=== PATIENT | female | born 1965 | race Caucasian/White ===

== ENCOUNTER 2017-03-26 15:18 | Emergency (ER) | payer SELFPAY ==
[~2017-03-26] VITALS: Ht 165.1 cm; Wt 81.6 kg
[2017-03-26 15:37] VITALS: TEMP 37.2; Ht 165.1 cm; Wt 81.6 kg
[2017-03-26] MEDS ORDERED: GABA1CAP5 PO (16:22)
[2017-03-26 16:38] LABS: BASO % 0.3 %; BASO ABS # 0.03 K/uL (0-0.2); EOS % 1.1 %; EOS ABS # 0.12 K/uL (0-0.5); HEMATOCRIT 42.9 % (37-47); HEMOGLOBIN 14.5 g/dL (12.0-16.0); IG# 0.03 K/uL (0.00-0.02); LYMPH % 14.6 %; LYMPH ABS # 1.58 K/uL (1.2-3.4); MEAN CELL VOLUME 87.9 fL (80-100); MEAN CORPUSCULAR HEMOGLOBIN 29.7 pg (25-34); MEAN CORPUSCULAR HGB CONC 33.8 g/dl (32-36); MEAN PLATELET VOLUME 11.5 fL (7.4-10.4); MONO % 6.8 %; MONO ABS # 0.74 K/uL (0.11-0.59); NEUT % 76.9 %; NEUT ABS # 8.32 K/uL (1.4-6.5); PLATELET COUNT 257 K/uL (130-400); RED CELL DISTRIBUTION WIDTH CV 13.9 % (11.5-14.5); RED CELL DISTRIBUTION WIDTH SD 44.6 fL (36.4-46.3); WHITE BLOOD COUNT 10.82 K/uL (4.8-10.8)
[2017-03-26 16:45] LABS: PTT PATIENT 27.6 SECONDS (21.0-31.0)
[2017-03-26 17:00] LABS: CALCIUM 9.5 mg/dl (8.5-10.1); CREATININE 1.1 mg/dl (0.60-1.20)
--- NOTE | 2017-03-26 17:49 | DIAGNOSTIC IMAGING REPORT ---
CERVICAL WITHOUT CONTRAST HISTORY: 51 years-old Female bilateral upper extremity radiculopathy chronic left hand pain for several months without known injury. COMPARISON: None available TECHNIQUE: Multiplanar multisequence MRI of the cervical spine was obtained without contrast. FINDINGS: Study is moderately limited secondary to patient motion throughout all of the sequences. Imaged posterior fossa structures are unremarkable. Signal within the cervical spinal cord is within normal limits. No acute fracture, subluxation, focal bone marrow or soft tissue edema identified. C2-C3: No significant central canal or foraminal narrowing. C3-C4: Mild uncovertebral spurring, left greater than right without significant central canal or foraminal narrowing. C4-C5: Mild intervertebral disc space narrowing with broad-based posterior disc bulge favoring the left lateral recess/left neuroforamen and uncovertebral spurring is noted causing mild central canal, moderate left lateral recess and mild left foraminal narrowing. No significant right foraminal narrowing at this level identified. C5-C6: Mild intervertebral disc space narrowing with small circumferential disc bulge which flattens the ventral thecal sac. No significant central canal or foraminal narrowing identified. Mild uncovertebral spurring. C6-C7: Mild intervertebral disc space narrowing and uncovertebral spurring. No significant central canal or foraminal narrowing. C7-T1: No significant central canal or foraminal narrowing. IMPRESSION: 1. Moderately limited study secondary to patient motion throughout all of the sequences . 2. Mild intervertebral disc space narrowing is seen at C4-C5 through C6-C7. Broad-based posterior disc bulge favoring the left lateral recess/left neuroforamen at C4-C5 causes mild central canal, moderate left lateral recess and mild left foraminal narrowing. 3. No fracture or focal bone marrow edema. The above report was generated using voice recognition software. It may contain grammatical, syntax or spelling errors. Electronically signed by: Abel Oviedo M.D. 03/26/2017 5:47 PM Dictated Date/Time: 03/26/2017 5:40 PM
[2017-03-26] MEDS ORDERED: GADAVIST IV PRN (18:00)
--- NOTE | 2017-03-26 18:07 | EMERGENCY ROOM VISIT NOTE ---
History First contact with patient: 17:05 Chief Complaint: HAND PAIN/INJURY Stated Complaint: LEFT HAND PAIN History of Present Illness The patient is a 51 year old female who presents to the Emergency Room via private vehicle with complaints of "left hand pain". The patient history and physical examination were obtained by Hilda Mendez PA-C. The case was signed out to me at time of shift change. Please refer to her note for the history, review of systems, physical examination as well as patient course up to the point of shift change. At that time the MRIs were pending. Review of Systems The patient history and physical examination were obtained by Hilda Mendez PA-C. The case was signed out to me at time of shift change. Please refer to her note for the history, review of systems, physical examination as well as patient course up to the point of shift change. At that time the MRIs were pending. Social History Smoking Status: Former Smoker Current/Historical Medications Scheduled Gabapentin (Neurontin), 400 MG PO QID Methylprednisolone (Medrol Dosepak), 0 PO DAILY Scheduled PRN Oxycodone Ir (Roxicodone Ir), 1-2 TAB PO Q4H PRN for Pain Physical Exam Vital Signs Date Time Temp Pulse Resp B/P (MAP) Pulse Ox O2 Delivery O2 Flow Rate FiO2 03/26/17 19:44 63 18 155/89 95 Room Air 03/26/17 18:15 65 16 129/110 97 Room Air 03/26/17 15:37 37.2 63 20 201/155 94 Room Air Physical Exam The patient history and physical examination were obtained by Hilda Mendez PA-C. The case was signed out to me at time of shift change. Please refer to her note for the history, review of systems, physical examination as well as patient course up to the point of shift change. At that time the MRIs were pending. Upon my exam, the patient was able to extend at the wrist and the fingers as well as clenched fist. Medical Decision & Procedures ER Provider Diagnostic Interpretation: BRAIN COMBO FOR MS HISTORY: 51 years-old Female left upper extremity neurologic deficit/ muscle contractures left hand pain for several months without known injury. COMPARISON: CT cervical spine of same day TECHNIQUE: Multiplanar multisequence MRI of the cervical spine was obtained both with and without the use of 8 mL Gadavist utilizing Institutional multiple sclerosis protocol FINDINGS: Large field view java tech lead localizer images demonstrate no gross abnormality. There is no restricted diffusion to suggest acute infarction. The midline structures including the corpus callosum, brainstem, optic chiasm, pituitary and pineal glands are unremarkable as seen on the sagittal T1 series. Several of the sequences are moderately motion degraded. No cerebellar tonsillar herniation. There is no acute intracranial hemorrhage, midline shift, abnormal extra-axial collections, hydrocephalus or intracranial mass. Punctate focus of increased T2/FLAIR signal noted within the subcortical white matter of the left frontal lobe as seen on image 7 series 8, likely of no clinical significance. No significant periventricular hyperintensities identified to suggest multiple sclerosis. There is no abnormal intra-axial or extra-axial enhancement. Major flow voids at the level of the skull base appear to be patent. Orbits are symmetric and within normal limits. Paranasal sinuses are generally clear. The mastoid air cells are clear. Soft tissues and calvarium are unremarkable. IMPRESSION: 1. Moderately motion degraded exam without acute intracranial abnormality identified. 2. No abnormal enhancement or definite evidence of demyelinating disease. The above report was generated using voice recognition software. It may contain grammatical, syntax or spelling errors. Electronically signed by: Abel Oviedo M.D. 03/26/2017 6:15 PM Dictated Date/Time: 03/26/2017 6:04 PM CERVICAL WITHOUT CONTRAST HISTORY: 51 years-old Female bilateral upper extremity radiculopathy chronic left hand pain for several months without known injury. COMPARISON: None available TECHNIQUE: Multiplanar multisequence MRI of the cervical spine was obtained without contrast. FINDINGS: Study is moderately limited secondary to patient motion throughout all of the sequences. Imaged posterior fossa structures are unremarkable. Signal within the cervical spinal cord is within normal limits. No acute fracture, subluxation, focal bone marrow or soft tissue edema identified. C2-C3: No significant central canal or foraminal narrowing. C3-C4: Mild uncovertebral spurring, left greater than right without significant central canal or foraminal narrowing. C4-C5: Mild intervertebral disc space narrowing with broad-based posterior disc bulge favoring the left lateral recess/left neuroforamen and uncovertebral spurring is noted causing mild central canal, moderate left lateral recess and mild left foraminal narrowing. No significant right foraminal narrowing at this level identified. C5-C6: Mild intervertebral disc space narrowing with small circumferential disc bulge which flattens the ventral thecal sac. No significant central canal or foraminal narrowing identified. Mild uncovertebral spurring. C6-C7: Mild intervertebral disc space narrowing and uncovertebral spurring. No significant central canal or foraminal narrowing. C7-T1: No significant central canal or foraminal narrowing. IMPRESSION: 1. Moderately limited study secondary to patient motion throughout all of the sequences . 2. Mild intervertebral disc space narrowing is seen at C4-C5 through C6-C7. Broad-based posterior disc bulge favoring the left lateral recess/left neuroforamen at C4-C5 causes mild central canal, moderate left lateral recess and mild left foraminal narrowing. 3. No fracture or focal bone marrow edema. The above report was generated using voice recognition software. It may contain grammatical, syntax or spelling errors. Electronically signed by: Abel Oviedo M.D. 03/26/2017 5:47 PM Dictated Date/Time: 03/26/2017 5:40 PM L ELBOW MIN 3 VIEWS ROUTINE HISTORY: 51 years-old Female L forearm, elbow and hand pain. remote trauma acute left-sided elbow pain with history of remote trauma COMPARISON: None available TECHNIQUE: 3 views of the left elbow FINDINGS: Bones appear mildly demineralized. Moderate joint space narrowing of the radiocapitellar and olecranon trochlear articulations are noted with areas of subchondral sclerosis and subcortical lucency suggesting subcortical cysts with subtle erosions thought to be less likely. There is also mild soft tissue swelling about the elbow without large joint effusion or opaque foreign body. No acute fracture or subluxation. IMPRESSION: 1. Mild soft tissue swelling about the elbow without acute fracture or subluxation. 2. Moderate joint space narrowing about the elbow with subchondral sclerosis and probable subcortical cystic change, likely degenerative in nature with inflammatory arthropathy thought to be less likely. The above report was generated using voice recognition software. It may contain grammatical, syntax or spelling errors. Electronically signed by: Abel Oviedo M.D. 03/26/2017 6:46 PM Dictated Date/Time: 03/26/2017 6:43 PM Laboratory Results 03/26/17 16:25 Red Blood Count 4.88, Mean Corpuscular Volume 87.9, Mean Corpuscular Hemoglobin 29.7, Mean Corpuscular Hemoglobin Concent 33.8, Mean Platelet Volume 11.5, Neutrophils (%) (Auto) 76.9, Lymphocytes (%) (Auto) 14.6, Monocytes (%) (Auto) 6.8, Eosinophils (%) (Auto) 1.1, Basophils (%) (Auto) 0.3, Neutrophils # (Auto) 8.32, Lymphocytes # (Auto) 1.58, Monocytes # (Auto) 0.74, Eosinophils # (Auto) 0.12, Basophils # (Auto) 0.03 03/26/17 16:25 Test 03/26/17 16:25 White Blood Count 10.82 K/uL (4.8-10.8) Red Blood Count 4.88 M/uL (4.2-5.4) Hemoglobin 14.5 g/dL (12.0-16.0) Hematocrit 42.9 % (37-47) Mean Corpuscular Volume 87.9 fL (80-100) Mean Corpuscular Hemoglobin 29.7 pg (25-34) Mean Corpuscular Hemoglobin Concent 33.8 g/dl (32-36) Platelet Count 257 K/uL (130-400) Mean Platelet Volume 11.5 fL (7.4-10.4) Neutrophils (%) (Auto) 76.9 % Lymphocytes (%) (Auto) 14.6 % Monocytes (%) (Auto) 6.8 % Eosinophils (%) (Auto) 1.1 % Basophils (%) (Auto) 0.3 % Neutrophils # (Auto) 8.32 K/uL (1.4-6.5) Lymphocytes # (Auto) 1.58 K/uL (1.2-3.4) Monocytes # (Auto) 0.74 K/uL (0.11-0.59) Eosinophils # (Auto) 0.12 K/uL (0-0.5) Basophils # (Auto) 0.03 K/uL (0-0.2) RDW Standard Deviation 44.6 fL (36.4-46.3) RDW Coefficient of Variation 13.9 % (11.5-14.5) Immature Granulocyte % (Auto) 0.3 % Immature Granulocyte # (Auto) 0.03 K/uL (0.00-0.02) Prothrombin Time 10.1 SECONDS (9.0-12.0) Prothromb Time International Ratio 1.0 (0.9-1.1) Activated Partial Thromboplast Time 27.6 SECONDS (21.0-31.0) Partial Thromboplastin Ratio 1.1 Anion Gap 4.0 mmol/L (3-11) Est Creatinine Clear Calc Drug Dose 62.4 ml/min Estimated GFR () 66.4 Estimated GFR (Non- 57.3 BUN/Creatinine Ratio 18.3 (10-20) Calcium Level 9.5 mg/dl (8.5-10.1) Magnesium Level 2.3 mg/dl (1.8-2.4) Medications Administered Medications (Trade) Dose Ordered Sig/Surya Route Start Time Stop Time Status Last Admin Dose Admin Oxycodone HCl (Roxicodone Immediate Rel 5MG Home Pack) 1 [facility] UD STAT PO 03/26/17 19:46 03/26/17 19:47 DC 03/26/17 19:46 [facility] Medical Decision Patient was seen and evaluated as above. She presents to us today with left hand pain. She was initially seen by Hilda Mendez PA-C and was signed out to me at shift change. MRIs were pending. The results revealed no brain abnormality however the study is degraded by motion. The neck reveals some bulging disks. I suspect this could cause some of her pain. X-ray was also obtained and ordered by myself. Some degenerative change. Otherwise negative. There is no fracture. The patient does not have on my reevaluation any emergent neurovascular deficit. She appears stable from patient management with a meat specialist. There is no signal abnormality on the MRI. She'll be given steroids and pain medication. No red flags in the [place] drug monitoring system. She was educated upon management, educated upon worrisome symptoms in which to return, had questions prior to discharge, and was discharged home in good condition. In evaluation treatment this patient the following differential diagnoses were entertained: Elbow fracture, dislocation, olecranon bursitis, ulnar neuritis, cervical radiculopathy, multiple sclerosis, among others. Impression Primary Impression: Arm pain, left Departure Information Dispostion Home / Self-Care Condition GOOD Prescriptions Methylprednisolone (MEDROL DOSEPAK) 4 Mg Yahir 0 PO DAILY, #1 PKT Prov: Benito Samson PA-C 1/2/18 Oxycodone Ir (Roxicodone Ir) 5 Mg Tab 1-2 TAB PO Q4H Y for Pain, #20 TAB For Initial Treatment Prov: Benito Samson PA-C 03/26/17 Referrals No Doctor, Assigned (PCP) Edgardo Herman D.O. Sefter, John C., DO Patient Instructions My [facility] Additional Instructions You were seen in the emergency Department for left arm pain and weakness. Oxycodone 1 tablet every 6 hours for pain. Do not drive or drink alcohol with this medication. Medrol Dosepak as prescribed. CT scan shows a left disc bulge in your neck. X-ray of your left elbow shows degenerative change. Results are below to discuss with the orthopedic/meat specialist. I recommend following up with Dr. Sousa. Please call him tomorrow. Dr. Herman is the other meat specialist in the area. Please return with any new/concerning symptoms. As we discussed if you develop weakness in this arm worse than what you have, or inability to move please return. BRAIN COMBO FOR MS HISTORY: 51 years-old Female left upper extremity neurologic deficit/ muscle contractures left hand pain for several months without known injury. COMPARISON: CT cervical spine of same day TECHNIQUE: Multiplanar multisequence MRI of the cervical spine was obtained both with and without the use of 8 mL Gadavist utilizing Institutional multiple sclerosis protocol FINDINGS: Large field view java tech lead localizer images demonstrate no gross abnormality. There is no restricted diffusion to suggest acute infarction. The midline structures including the corpus callosum, brainstem, optic chiasm, pituitary and pineal glands are unremarkable as seen on the sagittal T1 series. Several of the sequences are moderately motion degraded. No cerebellar tonsillar herniation. There is no acute intracranial hemorrhage, midline shift, abnormal extra-axial collections, hydrocephalus or intracranial mass. Punctate focus of increased T2/FLAIR signal noted within the subcortical white matter of the left frontal lobe as seen on image 7 series 8, likely of no clinical significance. No significant periventricular hyperintensities identified to suggest multiple sclerosis. There is no abnormal intra-axial or extra-axial enhancement. Major flow voids at the level of the skull base appear to be patent. Orbits are symmetric and within normal limits. Paranasal sinuses are generally clear. The mastoid air cells are clear. Soft tissues and calvarium are unremarkable. IMPRESSION: 1. Moderately motion degraded exam without acute intracranial abnormality identified. 2. No abnormal enhancement or definite evidence of demyelinating disease. The above report was generated using voice recognition software. It may contain grammatical, syntax or spelling errors. Electronically signed by: Abel Oviedo M.D. 03/26/2017 6:15 PM Dictated Date/Time: 03/26/2017 6:04 PM CERVICAL WITHOUT CONTRAST HISTORY: 51 years-old Female bilateral upper extremity radiculopathy chronic left hand pain for several months without known injury. COMPARISON: None available TECHNIQUE: Multiplanar multisequence MRI of the cervical spine was obtained without contrast. FINDINGS: Study is moderately limited secondary to patient motion throughout all of the sequences. Imaged posterior fossa structures are unremarkable. Signal within the cervical spinal cord is within normal limits. No acute fracture, subluxation, focal bone marrow or soft tissue edema identified. C2-C3: No significant central canal or foraminal narrowing. C3-C4: Mild uncovertebral spurring, left greater than right without significant central canal or foraminal narrowing. C4-C5: Mild intervertebral disc space narrowing with broad-based posterior disc bulge favoring the left lateral recess/left neuroforamen and uncovertebral spurring is noted causing mild central canal, moderate left lateral recess and mild left foraminal narrowing. No significant right foraminal narrowing at this level identified. C5-C6: Mild intervertebral disc space narrowing with small circumferential disc bulge which flattens the ventral thecal sac. No significant central canal or foraminal narrowing identified. Mild uncovertebral spurring. C6-C7: Mild intervertebral disc space narrowing and uncovertebral spurring. No significant central canal or foraminal narrowing. C7-T1: No significant central canal or foraminal narrowing. IMPRESSION: 1. Moderately limited study secondary to patient motion throughout all of the sequences . 2. Mild intervertebral disc space narrowing is seen at C4-C5 through C6-C7. Broad-based posterior disc bulge favoring the left lateral recess/left neuroforamen at C4-C5 causes mild central canal, moderate left lateral recess and mild left foraminal narrowing. 3. No fracture or focal bone marrow edema. The above report was generated using voice recognition software. It may contain grammatical, syntax or spelling errors. Electronically signed by: Abel Oviedo M.D. 03/26/2017 5:47 PM Dictated Date/Time: 03/26/2017 5:40 PM L ELBOW MIN 3 VIEWS ROUTINE HISTORY: 51 years-old Female L forearm, elbow and hand pain. remote trauma acute left-sided elbow pain with history of remote trauma COMPARISON: None available TECHNIQUE: 3 views of the left elbow FINDINGS: Bones appear mildly demineralized. Moderate joint space narrowing of the radiocapitellar and olecranon trochlear articulations are noted with areas of subchondral sclerosis and subcortical lucency suggesting subcortical cysts with subtle erosions thought to be less likely. There is also mild soft tissue swelling about the elbow without large joint effusion or opaque foreign body. No acute fracture or subluxation.
--- NOTE | 2017-03-26 18:16 | DIAGNOSTIC IMAGING REPORT ---
BRAIN COMBO FOR MS HISTORY: 51 years-old Female left upper extremity neurologic deficit/ muscle contractures left hand pain for several months without known injury. COMPARISON: CT cervical spine of same day TECHNIQUE: Multiplanar multisequence MRI of the cervical spine was obtained both with and without the use of 8 mL Gadavist utilizing Institutional multiple sclerosis protocol FINDINGS: Large field view edge stainer machine localizer images demonstrate no gross abnormality. There is no restricted diffusion to suggest acute infarction. The midline structures including the corpus callosum, brainstem, optic chiasm, pituitary and pineal glands are unremarkable as seen on the sagittal T1 series. Several of the sequences are moderately motion degraded. No cerebellar tonsillar herniation. There is no acute intracranial hemorrhage, midline shift, abnormal extra-axial collections, hydrocephalus or intracranial mass. Punctate focus of increased T2/FLAIR signal noted within the subcortical white matter of the left frontal lobe as seen on image 7 series 8, likely of no clinical significance. No significant periventricular hyperintensities identified to suggest multiple sclerosis. There is no abnormal intra-axial or extra-axial enhancement. Major flow voids at the level of the skull base appear to be patent. Orbits are symmetric and within normal limits. Paranasal sinuses are generally clear. The mastoid air cells are clear. Soft tissues and calvarium are unremarkable. IMPRESSION: 1. Moderately motion degraded exam without acute intracranial abnormality identified. 2. No abnormal enhancement or definite evidence of demyelinating disease. The above report was generated using voice recognition software. It may contain grammatical, syntax or spelling errors. Electronically signed by: Abel Oviedo M.D. 03/26/2017 6:15 PM Dictated Date/Time: 03/26/2017 6:04 PM
--- NOTE | 2017-03-26 18:47 | DIAGNOSTIC IMAGING REPORT ---
L ELBOW MIN 3 VIEWS ROUTINE HISTORY: 51 years-old Female L forearm, elbow and hand pain. remote trauma acute left-sided elbow pain with history of remote trauma COMPARISON: None available TECHNIQUE: 3 views of the left elbow FINDINGS: Bones appear mildly demineralized. Moderate joint space narrowing of the radiocapitellar and olecranon trochlear articulations are noted with areas of subchondral sclerosis and subcortical lucency suggesting subcortical cysts with subtle erosions thought to be less likely. There is also mild soft tissue swelling about the elbow without large joint effusion or opaque foreign body. No acute fracture or subluxation. IMPRESSION: 1. Mild soft tissue swelling about the elbow without acute fracture or subluxation. 2. Moderate joint space narrowing about the elbow with subchondral sclerosis and probable subcortical cystic change, likely degenerative in nature with inflammatory arthropathy thought to be less likely. The above report was generated using voice recognition software. It may contain grammatical, syntax or spelling errors. Electronically signed by: Abel Oviedo M.D. 03/26/2017 6:46 PM Dictated Date/Time: 03/26/2017 6:43 PM
[2017-03-26 19:44] VITALS: BP 155/89; PULSE 63; O2SAT 95
[2017-03-26] MEDS ORDERED: OXYCODONE IR HOME PACK PO STA (19:46)
[2017-03-26] MEDS ORDERED: OXYC1TAB3 PO (19:47)
[2017-03-26] MEDS ORDERED: METH4PAK PO (19:47)
== END 2017-03-26 19:52 | disposition home or self-care (01) ==
LOC: C.EDB 15:20 → C.EDD 19:52
DX: M79.602 Pain in left arm (principal); Z87.891 Personal history of nicotine dependence; Z79.899 Other long term (current) drug therapy

== ENCOUNTER 2017-07-05 11:41 | Emergency (ER) | payer OTHER ==
[~2017-07-05] VITALS: Ht 165.1 cm; Wt 80.9 kg
[~2017-07-05 11:41] MED LIST: GABA-1220 PO; OXYC1TAB3 PO
[2017-07-05 11:44] VITALS: TEMP 36.6; Ht 165.1 cm; Wt 80.9 kg
[2017-07-05] MEDS ORDERED: DIAZEPAM 5MG TAB PO STA (13:21)
--- NOTE | 2017-07-05 14:44 | DIAGNOSTIC IMAGING REPORT ---
Brain MRI WITH AND WITHOUT CONTRAST HISTORY: LEFT ARM INVOLUNTARY MOVEMENTS, SPASM, CONTRACTURES TECHNIQUE: Multiplanar multisequence MRI of the brain was performed both before and after the intravenous administration of contrast. COMPARISON STUDY: Brain MRI 03/26/2017. FINDINGS: There are no areas of restricted diffusion to suggest acute infarction. The midline structures are intact. The paranasal sinuses are clear. The mastoid air cells are clear. The ventricles and sulci are within normal limits for age. There is no mass, hematoma, midline shift. The major vascular flow-voids at the skull base are well maintained. Postcontrast sequences show no areas of abnormal enhancement. Stable punctate focus of increased T2 signal within the periventricular white matter of the left frontal lobe. This favors minimal microvascular ischemic change. IMPRESSION: No significant change compared to the prior study. No acute intracranial abnormality. Electronically signed by: Kenji Goodman M.D. 07/05/2017 2:43 PM Dictated Date/Time: 07/05/2017 2:37 PM
[2017-07-05] MEDS ORDERED: GADAVIST IV PRN (14:45)
[2017-07-05] MEDS ORDERED: CYCL10TA6 PO (16:09)
--- NOTE | 2017-07-05 16:10 | EMERGENCY ROOM VISIT NOTE ---
History First contact with patient: 11:47 Chief Complaint: FINGER PAIN Stated Complaint: FINGER PAIN/DEFORMITY History of Present Illness Patient is an ambidextrous 52-year-old female who presents to the emergency department for evaluation of chronic left arm pain, cramping and spasms with now associated contractures of her left thumb and index finger in the last week. The patient was seen and evaluated here in March of this year for similar complaints. At that time she had had a roughly 8-9 month history of pain in the arm, cramping, spasms and involuntary movement. She had a thorough workup performed at that time which included brain and cervical spine MRIs with and without contrast, which were essentially unremarkable, she had some mild disc disease in the cervical spine, but no other acute pathology. She was referred to orthopedic spine surgery after being placed on a course of steroids and narcotics. The patient was unable to follow-up with orthopedic spine due to her lack of insurance. She states that she was seen by the "[facility] in [place]" in April, and certified for disability due to the symptoms in her left arm, but she denies any other additional testing was performed. She reports that she is in the process of getting insurance, she does not have any insurance cards presently, and therefore has not had any further follow-up for her arm symptoms. She has chronic pain in the arm, it radiates from her hand up to her shoulder into the side of her neck. That again has been chronic in nature but has been getting worse. It has been unalleviated by over-the- counter medications including aspirin, Tylenol, ibuprofen and Tylenol PM. She also has a wrist brace that she had been using in the past which is also been ineffective. She is concerned because in the last week her thumb and index finger on the left are fixed in flexion and she is unable to straighten them. She states that she has chronic numbness in her first, second and third fingers. The patient reports that she is on gabapentin for PTSD, and this does help with her hand pain slightly. She denies any symptoms in the other extremities. She denies any cervical spine pain. No headaches, lightheadedness , dizziness, nausea or vomiting. Review of Systems Review of systems as per HPI. All other systems reviewed were negative. 10 systems reviewed. Past Medical/Surgical History Medical Problems: (1) Arm pain, left (2) Post traumatic stress disorder (PTSD) (3) Sleep Disturbances Nec Surgical Problems: (1) Amputation of thumb, right Electronic medical records are reviewed and summarized as above/below. See Problem List. Social History Smoking Status: Never Smoker Housing Status: lives with family Occupation Status: disabled Current/Historical Medications Scheduled Gabapentin (Neurontin), 400 MG PO QID Scheduled PRN Cyclobenzaprine Hcl (Flexeril), 10 MG PO TID PRN for Muscle Spasms Oxycodone Ir (Roxicodone Ir), 1-2 TAB PO Q4H PRN for Pain Physical Exam Vital Signs Date Time Temp Pulse Resp B/P (MAP) Pulse Ox O2 Delivery O2 Flow Rate FiO2 07/05/17 16:15 84 18 186/107 96 07/05/17 15:55 68 16 175/86 97 Room Air 07/05/17 13:28 62 16 198/92 96 Room Air 07/05/17 11:44 36.6 75 20 190/110 95 Room Air Physical Exam GENERAL: Patient is an obese 52-year-old white female who is awake and alert and sitting upright on the gurney in no acute distress. She has involuntary, spastic almost chorea-like movements of the left upper extremity. NECK: Supple, no lymphadenopathy noted. No carotid bruits noted. LUNGS: Clear auscultation. CARDIAC: Regular rate and rhythmr. CERVICAL SPINE: No gross bony deformity noted. The patient is nontender to palpation over the spinous processes in the paravertebral region. She is full range of motion of the cervical spine. NEURO:Cranial nerves two through 12 intact. Patient was unable to do fine motor testing due to hyperextension of all her fingers of the right hand as well as contractures of the left hand. Negative pronator drift. LEFT UPPER EXTREMITY. No gross bony deformity noted. The patient has tenderness to palpation at the shoulder and the elbow, slight swelling of the elbow is appreciated although no obvious joint effusion. Passive range of motion of the shoulder and elbow are limited. She cannot be flexed or abducted the shoulder greater than 90, elbow lacks full extension, can be flex just past 90. Unable to assess pronation and supination due to spasm. She postures more with the wrist in flexion, she also has flexion of the left index and left thumb, when asked to extend her fingers, she is able to extend the fingers and wrist, at which point then the index finger begins to flex again, she is unable to extend the left thumb. [employer] Cutter strength is equal bilaterally. I am unable to elicit triceps or brachioradialis deep tendon reflexes on the left , biceps tendon reflex is present, slightly hyperreflexive. Gross sensation to light touch is intact over the entire left upper extremity. All throughout the exam, patient has involuntary movements. RIGHt UPPER EXTREMITY: Right thumb is surgically absent. The patient has hyperextension intermittently of all fingers, but otherwise full range of motion and normal sensation. Upper extremity deep tendon reflexes on the right are normal. Medical Decision & Procedures ER Provider Diagnostic Interpretation: Brain MRI WITH AND WITHOUT CONTRAST HISTORY: LEFT ARM INVOLUNTARY MOVEMENTS, SPASM, CONTRACTURES TECHNIQUE: Multiplanar multisequence MRI of the brain was performed both before and after the intravenous administration of contrast. COMPARISON STUDY: Brain MRI 03/26/2017. FINDINGS: There are no areas of restricted diffusion to suggest acute infarction. The midline structures are intact. The paranasal sinuses are clear. The mastoid air cells are clear. The ventricles and sulci are within normal limits for age. There is no mass, hematoma, midline shift. The major vascular flow-voids at the skull base are well maintained. Postcontrast sequences show no areas of abnormal enhancement. Stable punctate focus of increased T2 signal within the periventricular white matter of the left frontal lobe. This favors minimal microvascular ischemic change. IMPRESSION: No significant change compared to the prior study. No acute intracranial abnormality. Medications Administered Medications (Trade) Dose Ordered Sig/Surya Route Start Time Stop Time Status Last Admin Dose Admin Diazepam (Valium Tab) 10 mg NOW STAT PO 07/05/17 13:21 07/05/17 13:22 DC 07/05/17 13:26 10 MG ED Course The patient was seen and assessed as above. Her old records are reviewed, specifically her ED visit from a couple of months ago. Her history and presentation were reviewed with attending physician, who advised to review the patient with neurology. I was able to speak with Dr. Pepper, who suggested that if her symptoms were worsening that a repeat MRI was reasonable, repeat brain MRI with and without contrast was obtained, and was essentially unremarkable. He suggested her symptoms are concerning for a focal dystonia, could be related to stroke or trauma, other type of demyelinating process, cervical spine pathology, among others. The fingers can be passively fully extended, there is nothing that appears to be more localized like an orthopedic process such as a trigger finger or Dupuytren's contracture. MRI findings were reviewed with the patient. The importance of follow-up with neurology for further workup of her symptoms was impressed upon her at length. I offered to make her an appointment with a neurologist, but she does not want to pursue any appointments until she has her insurance card in the hand. She was advised to speak with the insurance company that she has been dealing with to expedite this. She expressed understanding and was in agreement. The patient was given 10 mg of Valium orally prior to MRI and did find that the benzodiazepine helped with her involuntary movements. I am reluctant to prescribe narcotics for this condition due to the unclear etiology, but I did provide her with a prescription for muscle relaxers to use as needed for pain and spasm. She was given contact information for all local neurology groups to arrange follow-up. She was discharged home in good condition. Medical Decision See emergency department course. [facility] Search Results: patient reviewed within database, no issues identified Medication Reconcilliation Current Medication List: was personally reviewed by me Blood Pressure Screening Patient's blood pressure: Normal blood pressure Blood pressure disposition: Did not require urgent referral Impression Primary Impression: Focal dystonia Departure Information Prescriptions Cyclobenzaprine Hcl (FLEXERIL) 10 Mg Tab 10 MG PO TID Y for Muscle Spasms, #30 TAB Prov: Rhiannon Tijerina PA 07/05/17 Referrals No Doctor, Assigned (PCP) Ruben Pepper M.D. [facility] Neu[facility] Dora Delgadillo M.D. [facility] Neurology Patient Instructions [facility] Additional Instructions Ibuprofen(Motrin, Advil) may be used for fever or pain. Use 600mg every six hours as needed. Take with food. Avoid using more than 2400mg in a 24 hour period. Do not use 2400mg per day for more than three consecutive days without physician direction. Prolonged inappropriate use can lead to stomach upset or ulcers. (AND/OR) Acetaminophen(Tylenol) may be used for fever or pain. Use 1000mg every six hours as needed. Avoid using more than 3000mg in a 24 hour period. Cyclobenzaprine (Flexeril) 10 mg: Take 1 pills 3 times daily as needed for muscle spasms.. Avoid alcohol, operating machinery or dangerous equipment, working on ladders or roofs, DRIVING, or situations where being under the influence may be dangerous. Continue current medications. Follow up with neurology-you will need to call to make an appointment when you get your insurance information.
[2017-07-05 16:15] VITALS: BP 186/107; PULSE 84; O2SAT 96
== END 2017-07-05 16:25 | disposition home or self-care (01) ==
LOC: C.EDB 11:42 → C.EDD 16:25
DX: G24.9 Dystonia, unspecified (principal); G89.29 Other chronic pain; M79.602 Pain in left arm; F43.10 Post-traumatic stress disorder, unspecified; Z89.011 Acquired absence of right thumb; Z79.899 Other long term (current) drug therapy

== ENCOUNTER 2020-07-06 19:28 | Inpatient (IN) ==
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
[2020-07-06 22:52] LABS: Basophils # (auto) 0.01 K/uL (0-0.2); Basophils % (auto) 0.1 %; Eosinophils # (auto) 0.07 K/uL (0-0.5); Eosinophils % (auto) 0.9 %; Hematocrit (blood only) 43.4 % (37-47); Immature Granulocytes # (auto) 0.03 K/uL (0.00-0.02); Immature Granulocytes % (auto) 0.4 %; Lymphocytes # (auto) 1.85 K/uL (1.2-3.4); Lymphocytes % (auto) 23.5 %; Mean Corpuscular Hemoglobin 28.5 pg (25-34); Mean Corpuscular Hgb Conc 32.3 g/dL (32-36); Mean Corpuscular Volume 88.4 fL (80-100); Mean Platelet Volume 9.9 fL (7.4-10.4); Monocytes # (auto) 0.74 K/uL (0.11-0.59); Monocytes % (auto) 9.4 %; Neutrophils # (auto) 5.18 K/uL (1.4-6.5); Neutrophils % (auto) 65.7 %; Platelet Count 294 K/uL (130-400); RDW Coefficient of Variation 15.5 % (11.5-14.5); RDW Standard Deviation 49.3 fL (36.4-46.3); Red Blood Count 4.91 M/uL (4.2-5.4); White Blood Count 7.88 K/uL (4.8-10.8)
[2020-07-06 23:09] LABS: BUN Creatinine Ratio 13.5 (10-20); Calcium 9.5 mg/dl (8.5-10.1); Creatinine Clr Calc Pharmacy 57.6 ml/min; Est GFR (African American) 77.1; Est GFR (Non-African American) 66.5; Potassium 3.9 mmol/L (3.5-5.1)
[2020-07-06 23:20] LABS: Acetaminophen < 2 ug/ml (10-30); Bilirubin,Total 0.5 mg/dl (0.2-1); Globulin 4.2 gm/dl (2.5-4.0); Salicylate < 1.7 mg/dl (2.8-20); Thyroid Stimulating Hormone 1.55 uIu/ml (0.300-4.500); Total Protein 8.2 gm/dl (6.4-8.2)
[2020-07-06 23:33] LABS: Appearance Urine Turbid (Clear); Bacteria Urine Automated 2+ (Negative); Bilirubin Urine Negative (Negative); Blood Urine Negative (Negative); Color Urine Yellow; Epithelial Cell Urine Auto >30 /lpf (0-5); Glucose Urine UA Negative (Negative); Ketones Urine Negative (Negative); Leukocyte Esterase Urine 2+ (Negative); Nitrite Urine Negative (Negative); Protein Urine 1+ (Negative); Specific Gravity Urine 1.018 (1.000-1.030); Urobilinogen Urine Negative (Negative); WBC Urine Automated >30 /hpf (0-5)
[2020-07-06 23:53] LABS: Mucus Urine Present (None Prsent)
[2020-07-06 23:54] LABS: RBC Urine Automated 0-4 /hpf (0-4)
[2020-07-07] MEDS ORDERED: cefTRIAXone SODIUM 1,000 MG/50 ML BAG IV STA (00:04)
[2020-07-07] MEDS ORDERED: SODIUM CHLORIDE 0.9% 1000ML 1,000 ML IV ONE (00:04)
[2020-07-07 00:19] LABS: Amphetamines+Metham, Urine Neg (Neg); Barbiturates, Urine Neg (Neg); Benzodiazepine, Urine Neg (Neg); Cocaine, Urine Neg (Neg); MDMA (Ecstacy), Urine Pos (Neg); Methadone, Urine Neg (Neg); Opiate, Urine Neg (Neg); Phencyclidine, Urine Neg (Neg)
--- NOTE | 2020-07-07 05:47 | Emergency Department Note ---
ED Visit Note This case was signed out to me at change of shift awaiting evaluation by the ED psychiatric leather case finisher. The patient was found to have delusional thinking. She has no psychiatric resources and no support system. The patient appeared to be suffering from acute psychosis. She is unable to care for herself. The patient does not have good insight. The 302 was signed. The patient was evaluated by 3 S and accepted to their unit. . : UTI (urinary tract infection) Qualifiers: Urinary tract infection type: acute cystitis Hematuria presence: with hematuria Qualified Code(s): N30.01 - Acute cystitis with hematuria
[2020-07-07] MEDS ORDERED: BISMUTH SUBSALICYLATE LIQD 236 ML PO PRN (06:11)
[2020-07-07] MEDS ORDERED: hydrOXYzine HCl 25 MG TAB PO PRN ×2 (06:11)
[2020-07-07] MEDS ORDERED: SODIUM CHLORIDE 0.65% NA SOLN 45 ML (OCEAN) PRN (06:11)
[2020-07-07] MEDS ORDERED: MAGNESIUM HYDROXIDE SUSP 30 ML UDC PO PRN (06:11)
[2020-07-07] MEDS ORDERED: ALUMINUM/MAGNESIUM SUSP 30 ML UDC PO PRN (06:11)
--- NOTE | 2020-07-07 07:15 | CT Scan Report ---
HEAD CT NONCONTRAST CT DOSE: 537.48 mGy.cm HISTORY: Altered mental status TECHNIQUE: Multiaxial CT images of the head were performed without the use of intravenous contrast. A utomated exposure control was utilized for this study. A dose lowering technique was utilized adheri ng to the principles of ALARA. Comparison: None. Findings: The paranasal sinuses and mastoid air cells are clear. The calvarium and skull base are int act. The ventricles and sulci are within normal limits. There is no mass, hematoma, midline shift, or acute infarct. Impression: No acute intracranial abnormality. ACT 112: Negative or not required by law. Electronically signed by: Kenji Goodman M.D. 07/07/2020 7:14 AM
[2020-07-07] MEDS: FOLIC ACID 1 MG TAB PO SCH (08:14)
[2020-07-07] MEDS: GABAPENTIN 300 MG CAP PO SCH ×3 (08:14→20:18)
[2020-07-07] MEDS: BACLOFEN 20 MG TAB PO SCH ×3 (08:14→20:18)
[2020-07-07] MEDS: DICLOFENAC SODIUM 75 MG TABCR PO SCH (08:15)
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
[2020-07-07] MEDS ORDERED: risperiDONE 0.5 MG TABLET PO PRN (10:13)
[2020-07-07] MEDS: traZODone HCL 100 MG TAB PO SCH (20:18)
[2020-07-07] MEDS: risperiDONE 0.5 MG TABLET PO SCH (20:19)
--- NOTE | 2020-07-08 06:14 | Electrocardiogram Report ---
Test Reason : Blood Pressure : / mmHG Vent. Rate : 050 BPM Atrial Rate : 050 BPM P-R Int : 130 ms QRS Dur : 074 ms QT Int : 466 ms P-R-T Axes : 047 -07 043 degrees QTc Int : 424 ms Sinus bradycardia Nonspecific T wave abnormality Abnormal ECG When compared with ECG of 05-OCT-2019 04:04, No significant change Confirmed by Christopher Crouch ([id number]) on 07/08/2020 6:14:49 AM Referred By: REFERRED SELF Confirmed By:Christopher Crouch
[2020-07-08 07:50] LABS: Glucose Fasting 91 mg/dl (70-99)
[2020-07-08 07:57] LABS: Chol HDL Ratio 5; Cholesterol 179 mg/dl (0-200); HDL Cholesterol 39 mg/dl; LDL Cholesterol Calculated 119 mg/dl; Triglycerides 103 mg/dl (0-150); VLDL Cholesterol 21 mg/dl
[2020-07-08] MEDS: FOLIC ACID 1 MG TAB PO SCH (10:56)
[2020-07-08] MEDS: DICLOFENAC SODIUM 75 MG TABCR PO SCH (10:56)
[2020-07-08] MEDS: GABAPENTIN 300 MG CAP PO SCH ×3 (10:57→20:32)
[2020-07-08] MEDS: BACLOFEN 20 MG TAB PO SCH ×3 (10:57→20:32)
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
[2020-07-08] MEDS: traZODone HCL 100 MG TAB PO SCH (20:32)
[2020-07-08] MEDS: ACETAMINOPHEN 325 MG TAB PO PRN (20:33)
[2020-07-08] MEDS: risperiDONE 0.5 MG TABLET PO SCH (20:34)
[2020-07-09] MEDS: FOLIC ACID 1 MG TAB PO SCH (09:20)
[2020-07-09] MEDS: DICLOFENAC SODIUM 75 MG TABCR PO SCH (09:20)
[2020-07-09] MEDS: BACLOFEN 20 MG TAB PO SCH ×3 (09:20→20:47)
[2020-07-09] MEDS: GABAPENTIN 300 MG CAP PO SCH ×3 (09:21→20:47)
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
[2020-07-09] MEDS: ACETAMINOPHEN 325 MG TAB PO PRN (20:45)
[2020-07-09] MEDS: risperiDONE 0.5 MG TABLET PO SCH (20:47)
[2020-07-09] MEDS: traZODone HCL 100 MG TAB PO SCH (20:47)
[2020-07-10] MEDS: BACLOFEN 20 MG TAB PO SCH ×3 (08:18→21:01)
[2020-07-10] MEDS: FOLIC ACID 1 MG TAB PO SCH (08:18)
[2020-07-10] MEDS: GABAPENTIN 300 MG CAP PO SCH ×3 (08:18→21:01)
--- NOTE | 2020-07-10 11:32 | Psychiatric Progress Note ---
Date of Service July 10, 2020 Impression / Recommendations Impression 55-year-old single female with a history of an unknown dystonic disorder and unknown psychiatric history, possibly diagnosed with bipolar disorder in the past and possibly prescribe Zyprexa, who presents with auditory and visual hallucinations and delusions of persecution, timeline unknown. She is a limited historian and we have no collateral information at this time, so there is a broad differential as below. She is admitted involuntarily, and inpatient treatment is medically necessary due to the severity of symptoms and risk for harm to both herself and others if discharged, as she reported homicidal randa ation towards unknown others, and is currently unable to accurately interpret reality. Reviewed 07/09/20. Today patient admits to significant overuse of amantadine which likely contributed significantly to her presentation. 07/10/20--retrial of amantadine prior to discharge (1) Psychosis: 07/07 -patient presents with what appears to be delusions of persecution, auditory and visual hallucinations. The differential is broad and we have very little background information; includes a primary thought disorder, psychotic mood disorder (although no prominent mood symptoms currently), delirium (possible UTI, is mildly disoriented), other organic cause (neurological condition such as Isabela's, unclear what the cause of her dystonia is), and substance-induced psychosis (denies recent drug use but reports a history of cocaine use, UDS + MDMA, although this may be a false positive). -Would be very helpful to get collateral information from her family or anyone else who knows her and has seen her recently, can tell us about her baseline, etc. -Continue involuntary hospitalization, medically necessary private room due to psychosis, and elopement precautions. -Discussed recommendations for trial of a different atypical antipsychotic to target psychosis, and although patient was poorly able to engage in this discussion due to the severity of her psychosis, will order risperidone 0.5 mg at bedtime and as needed. Her fasting labs for tomorrow for monitoring on an atypical antipsychotic. -Continue trazodone 100 mg at bedtime. -Involved in groups and therapy as appropriate, work on healthy coping skills and discharge safety plan. She would benefit from referral for outpatient mental health treatment. 07/08 - Continue risperidone as above - patient continues to believe that men broke into her home, but is not as preoccupied with the idea - Fasting glucose and lipid panel reviewed - all values WNL - Continue to encourage group and recreational programming - Refer for outpatient psychiatric supports - Continue attempts to gather collateral information from brother or other outpatient supports. Reviewed 07/09/20. improved, will not titrate Risperdal given this and baseline dystonia. Will need assistance with her med compliance/safety upon discharge. (2) UTI (urinary tract infection): 07/07 - appears to have been a contaminated sample, got antibiotics in the ER, will follow up on culture results. Asymptomatic. (3) Dystonia: 07/07 -continue home doses of gabapentin and baclofen. Would be helpful to get records from PCP Dr. Srinath Berumen and neurologist Dr. Simons, but patient has been unwilling to sign ROIs. Reviewed 07/09/20. Patient has f/u appointment for injection, no cogwheeling on exam, consider restart of amantadine as trial tomorrow as will require discharge pm of 07/10. 07/10--reviewed with patient that in addition to securing meds, she will need to retitrate amantadine to ensure no recurrence of symptoms in consultation with Dr. Carvajal. Will alert office tomorrow. trial dose of 100 mg amantadine today. Risk Factors Assessment Male: No : Yes Do You Have Access To A Gun?: No Health Problems: No Mental Health Diagnoses: Yes Previous Psychiatric Hospitalization: Yes Protective Factors Assessment : No Responsible for Young Children: No Employed: No Supportive Family: Yes Interval History Identifying Information DEEP CARRILLO is a 55-year-old F who currently lives in [place], has a history of PTSD and bipolar disorder per patient, and was admitted on 07/07/20 06:11 on a 302 involuntary commitment for psychosis and HI. Reviewed 07/09/20. Chief Complaint "I'm homesick". Review of Systems Sleep Information Total Hours of Sleep: 7 Sleep Comments: Patient reported to staff that she had "bad dreams" through the night. she was very tearful upon waking. Meal Information Percent Meal Consumed - Breakfast: 100 Percent Meal Consumed - Lunch: 50 Percent Meal Consumed - Dinner: 100 Nutrition Comment: per meal record Subjective Subjective Patient was seen & assessed and interval progress reviewed with nursing and social work. dystonia a bit worse than baseline per patient but free of larry and paranoia. Physical Exam Psychiatric Orientation: alert Apperance: appropriately groomed Eye Contact: + fair eye contact Motor Behavior: + abnormal motor movements Speech: normal rate/rhythm/volume of speech Affect: euthymic affect Mood: + anxious mood Thought Process: + concrete thought process Thought Content: not paranoid and no delusions Suicidal Thoughts: denies suicidal thoughts Homicidal Thoughts: denies homicidal thoughts Hallucinations: no auditory hallucinations and no visual hallucinations Cognition: attention grossly intact and language grossly intact Insight: + limited insight Judgement: + limited judgement Vital Signs (Past 24 Hours) Last Vital Signs Temp 36.4 C L 07/10/20 06:59 Pulse 76 07/10/20 06:59 Resp 17 07/10/20 06:59 BP 145/82 H 07/10/20 06:59 Pulse Ox 98 07/07/20 01:52 Results & Data ([facility]) Current Inpatient Medications Current Inpatient Medications: Current Inpatient Medications Acetaminophen (Acetaminophen 325 Mg Tab) 650 mg PO Q4H PRN PRN Reason: Headache or Minor Fever Stop: 08/06/20 06:10 Last Admin: 07/09/20 20:45 Dose: 650 mg Documented by: Al Hydrox/Mg Hydrox/Simethicone (Aluminum/Magnesium Susp 30 Ml Udc) 30 ml PO Q4H PRN PRN Reason: GI Upset Stop: 08/06/20 06:10 Amantadine HCl (Amantadine Hcl 100 Mg Capsule) 100 mg PO QAM [facility] Stop: 08/09/20 10:59 Baclofen (Baclofen 20 Mg Tab) 20 mg PO TID [facility] Stop: 08/06/20 08:59 Last Admin: 07/10/20 08:18 Dose: 20 mg Documented by: Bismuth Subsalicylate (Bismuth Subsalicylate Liqd 236 Ml) 15 ml PO PRN PRN PRN Reason: Loose Stool Stop: 08/06/20 06:10 Diclofenac Sodium (Diclofenac Sodium 75 Mg Tabcr) 75 mg PO DAILYBD [facility] Stop: 08/09/20 17:14 Diclofenac Sodium (Diclofenac Sod 1% Gel 100 Gm Tube) 2 gm EXT BID PRN PRN Reason: Pain Stop: 08/09/20 10:59 Folic Acid (Folic Acid 1 Mg Tab) 1 mg PO QAM [facility] Stop: 08/06/20 08:59 Last Admin: 07/10/20 08:18 Dose: 1 mg Documented by: Gabapentin (Gabapentin 300 Mg Cap) 300 mg PO TID [facility] Stop: 08/06/20 08:59 Last Admin: 07/10/20 08:18 Dose: 300 mg Documented by: Hydroxyzine HCl (Hydroxyzine Hcl 25 Mg Tab) 50 mg PO HSZ PRN PRN Reason: Insomnia Stop: 08/06/20 06:10 Hydroxyzine HCl (Hydroxyzine Hcl 25 Mg Tab) 25 mg PO Q4H PRN PRN Reason: Anxiety Stop: 08/06/20 06:10 Last Admin: 07/10/20 05:51 Dose: 25 mg Documented by: Magnesium Hydroxide (Magnesium Hydroxide Susp 30 Ml Udc) 30 ml PO DAILY PRN PRN Reason: Constipation Stop: 08/06/20 06:10 Methotrexate (Methotrexate Sodium 2.5 Mg Tab) 15 mg PO ONE ONE Stop: 07/10/20 12:01 Last Admin: 07/10/20 08:21 Dose: 15 mg Documented by: Risperidone (Risperidone 0.5 Mg Tablet) 0.5 mg PO HS [facility] Stop: 08/06/20 21:59 Last Admin: 07/09/20 20:47 Dose: 0.5 mg Documented by: Risperidone (Risperidone 0.5 Mg Tablet) 0.5 mg PO Q4H PRN PRN Reason: psychosis Stop: 08/06/20 10:12 Last Admin: 07/07/20 11:15 Dose: 0.5 mg Documented by: Sodium Chloride (Sodium Chloride 0.65% Na Soln 45 Ml ([place])) 1 - 2 sprays NA PRN PRN PRN Reason: Nasal Dryness/Congestion Stop: 08/06/20 06:10 Trazodone HCl (Trazodone Hcl 100 Mg Tab) 100 mg PO HS [facility] Stop: 08/06/20 21:59 Last Admin: 07/09/20 20:47 Dose: 100 mg Documented by: Mental Health & Subst Abuse Tx Therapist Name of Therapist: None Tafe Registrar Name of Tafe Registrar: Cassie of [facility] but "she didn't help" Post Discharge Appointments Primary Care Physician Name Of Family Doctor: Dr. Carvajal Contact Information Discharge Discharge [address]: [address] [place] [address] (1) UTI (urinary tract infection) Hematuria presence: with hematuria Urinary tract infection type: acute cystitis Qualified Code(s): N30.01 - Acute cystitis with hematuria
[2020-07-10] MEDS ORDERED: metHOTREXate sodium 2.5 MG TAB PO ONE (12:00)
[2020-07-10] MEDS: AMANTADINE HCL 100 MG CAPSULE PO SCH (12:14)
[2020-07-10] MEDS: DICLOFENAC SOD 1% GEL 100 GM TUBE EXT PRN ×3 (13:13→22:58)
[2020-07-10] MEDS: ACETAMINOPHEN 325 MG TAB PO PRN ×2 (17:05→23:00)
[2020-07-10] MEDS ORDERED: DICLOFENAC SODIUM 75 MG TABCR PO SCH (17:15)
[2020-07-10] MEDS: traZODone HCL 100 MG TAB PO SCH (21:01)
[2020-07-10] MEDS: risperiDONE 0.5 MG TABLET PO SCH (21:01)
[2020-07-11] MEDS: GABAPENTIN 300 MG CAP PO SCH (08:55)
[2020-07-11] MEDS: BACLOFEN 20 MG TAB PO SCH (08:55)
[2020-07-11] MEDS: AMANTADINE HCL 100 MG CAPSULE PO SCH (08:55)
[2020-07-11] MEDS: FOLIC ACID 1 MG TAB PO SCH (08:55)
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
--- NOTE | 2020-07-11 10:20 | Communication Note ---
Date of Service: July 11, [address] Wei Thomason re: amantadine scripts and discharge on amantadine 100 mg until seen. He was thankful for the information and is scheduled to meet with her on 07/18 11 am. Reviewed need to re-titrate and monitor for recurrence. Contacted [facility] pharmacy [phone], they will cancel the 90 day supply for #270 tabs on hold and await any new prescription.
[2020-07-12 10:11] LABS: MDA negative; MDEA negative; MDMA (Ecstasy) Urine, Confirm negative
== END 2020-07-11 13:10 | disposition home or self-care (01) | DRG 918 ==
LOC: ED 19:28 → 3S 07-07 06:11

== ENCOUNTER 2021-10-06 20:13 | Inpatient (IN) ==
[2021-10-06] MEDS ORDERED: SODIUM CHLORIDE 0.9% 1000ML 1,000 ML IV ONE (21:43)
[2021-10-06] MEDS ORDERED: ACETAMINOPHEN 500 MG TAB PO STA (21:44)
--- NOTE | 2021-10-06 21:47 | Emergency Department Note ---
Impression & Plan Cellulitis of foot, left, History of amputation of left foot through metatarsal bone ED Provider Note Provider: Melo Mcintosh MD DATE OF SERVICE: 10/06/2021 CHIEF COMPLAINT: Left foot pain and discharge HISTORY OF PRESENT ILLNESS: Patient is a 56-year-old female past medical history of arthritis PTSD presenting here today referred from urgent care. Patient was seen and evaluated regarding amputation of her left foot that occurred with podiatry on August 31 of this year due to severe arthritis. Patient evidently had increasing pain started to have some bad smelling discharge. Reports some subjective fevers and feeling more weak today and not eating as well. No new traumas reported. Patient evidently is not been changing her dressings at often as she ran out of supplies. Saw her surgeon about 10 days ago with some stable dry eschar noted by the reports. Patient had a wound culture obtained and sent here for further evaluation. Patient denies further pain up the leg at this time . She says there has been some purulent discharge from the healing incision of her left midfoot and that again it smells quite bad. Patient denies smoking or diabetes or history of infection. REVIEW OF SYSTEMS: A total of 10 review of systems was obtained and negative except as stated above in the HPI. PAST MEDICAL HISTORY: As noted above MEDICATIONS: Reviewed home medications SOCIAL HISTORY: Denies smoking or alcohol use PHYSICAL EXAM: GENERAL: alert and oriented in no acute distress on stretcher Head: normocephalic and atraumatic EYES: No injection, discharge or icterus. NECK: Trachea midline. ENT: Mucous membranes pink and moist. LUNGS: Airway patent. No retractions. Breath sounds clear with good air entry bilaterally. HEART: Regular rate and rhythm. No chest wall tenderness ABDOMEN: Soft and non-tender, without guarding or rebound. SKIN: Acyanotic, warm, dry, without rashes EXTREMITIES: Without swelling, tenderness or deformity except: Amputation of the left distal midfoot with wound with significant erythema as well as an area laterally of some dry eschar. There is again significant erythema and some bogginess here with a foul smell present. Minimal to no discharge noted. Some redness to the midfoot but not extending to the ankle or higher. No crepitus. NEUROLOGICAL: No focal deficits. No aphasia. No facial droop or slurred speech. CONTINUOUS CARDIAC MONITORING: was ordered and showed a heart rate of bpm in Patient's laboratory studies and imaging reviewed. Differential includes Foreign body, fracture, dislocation, joint compromise, infection, soft tissue injury, tendon injury, vascular compromise, compartment syndrome, as well as other pathologies. IMPRESSION/MEDICAL DECISION MAKING: Patient history of arthritis on methotrexate status post left midfoot and distal amputation by podiatry on August 31. Subjective fevers but afebrile upon arrival. Labs were obtained as well as x-ray of the foot. No significant streaking past the ankle but redness and swelling of the amputation site on the midfoot with some dry eschar but also a lot of erythema. Foul-smelling foot and discharge appears grossly infected. Question if poor wound care may have contributed and appearance does not seem consistent with prior area of stable dry eschar noted 10 days ago. Blood work here today without anemia and white blood cell count only of 9.45. Minimal ESR elevation of 41. CRP mildly elevated 3. No severe chemistry abnormality otherwise. Do question the patient's ability to care for this wound well at home. Does have several antibiotic allergies. On methotrexate. Discussed with pharmacy and patient received ceftriaxone previously without significant adverse reaction last June. Given this we will give a dose of this as well as vancomycin for broad coverage pending culture results and clinical improvement of her wound. DIAGNOSIS: Left foot cellulitis status post amputation DISPOSITION: Hospitalist will evaluate Patient was agreeable with this plan. Past Med/Surg History Medical History (Updated 10/06/21 @ 22:45 by Melo Mcintosh M.D.) Bipolar 1 disorder Migraine Posttraumatic stress disorder UTI (urinary tract infection) Surgical History (Updated 10/06/21 @ 22:45 by Melo Mcintosh M.D.) History of amputation of right thumb History of foot surgery Family History Other Family history unknown Social History Smoking Status: Former smoker Hx Alcohol Use: No Hx Substance Use: No Preferred Language: Argentine Visual Impairment: No Limitations Hearing Ability: Normal Buffing Turner And Counter Required: No Beliefs That Will Affect Care: None marital status: Single Current Living Situation: Other Current Living Situation Comment: [facility] current occupational status: unemployed Feels Safe at Home: Yes Assistive Devices: None Allergies Allergies Allergy/AdvReac Type Severity Reaction Status Date / Time cephalexin Allergy Intermediate MOUTH AND Verified 10/06/21 22:13 THROAT BLISTERED codeine Allergy Intermediate Hives Verified 10/06/21 22:13 sulfamethoxazole Allergy Intermediate Hives Verified 10/06/21 22:13 trimethoprim Allergy Intermediate Hives Verified 10/06/21 22:13 Home Meds Home Medications Medication Instructions Recorded Confirmed baclofen 10 mg tablet 20 mg PO TID 08/27/18 10/06/21 gabapentin 300 mg capsule 300 mg PO TID 08/27/18 10/06/21 folic acid 1 mg tablet 1 mg PO DAILY 07/06/20 10/06/21 methotrexate sodium 2.5 mg tablet 15 mg PO WK 07/06/20 10/06/21 trazodone 150 mg tablet 150 mg PO HS 07/30/20 10/06/21 amantadine HCl 100 mg capsule 100 mg PO BID 10/06/21 10/06/21 Previous Rx's Medication Instructions Recorded risperidone 0.5 mg tablet 0.5 mg PO HS #30 tabs 07/11/20 Results & Data (ED) Vital Signs Vital Signs - 24 hr 10/06/21 20:24 Temperature 36.5 C Temperature Source Temporal Artery Scan Pulse Rate 88 Respiratory Rate 18 Blood Pressure 174/117 H Blood Pressure Mean 136 Blood Pressure Position Sitting Pulse Oximetry 94 Oxygen Delivery Method Room Air Sepsis Recent Fever Within 48 Hours Yes Sepsis New/Unexplained Change in Mental Status N/A Sepsis Action Taken by Nursing No Action Required Laboratory Data Result diagrams: 10/06/21 21:40 10/06/21 21:40 Lab Results 10/06/21 10/06/21 10/06/21 Range/Units 21:40 21:40 21:40 WBC 9.45 (4.8-10.8) K/ul RBC 4.59 (3.93-5.22) M/uL Hgb 14.4 (12.0-16.0) g/dl Hct 42.3 (34.1-44.9) % MCV 92.2 (80.0-100.0) fL MCH 31.4 (25.0-34.0) pg MCHC 34.0 (32.0-36.0) g/dL RDW Std Deviation 46.4 H (36.4-46.3) fL RDW Coeff of Jorge 13.8 (11.5-14.5) % Plt Count 243 (130-400) K/uL MPV 10.9 (9.4-12.3) fL Immature Gran % (Auto) 0.3 % Neut % (Auto) 79.5 % Lymph % (Auto) 10.8 % Barbour % (Auto) 8.0 % Eos % (Auto) 1.0 % Baso % (Auto) 0.4 % Neut # (Auto) 7.51 H (1.4-6.5) K/uL Lymph # (Auto) 1.02 L (1.2-3.4) K/uL Barbour # (Auto) 0.76 (0.24-0.82) K/uL Eos # (Auto) 0.09 (0-0.50) K/uL Baso # (Auto) 0.04 (0-0.2) K/uL Immature Gran # (Auto) 0.03 H (0.00-0.02) K/uL ESR 41 H (0-30) mm/hr Sodium 138 (136-145) mmol/L Potassium 3.8 (3.5-5.1) mmol/L Chloride 105 (98-107) mmol/L Carbon Dioxide 24 (21-32) mmol/L Anion Gap 9 (3-11) BUN 19 (6-23) mg/dl Creatinine 0.94 (0.6-1.2) mg/dl Est Cr Clr Drug Dosing 65.4 ml/min Est GFR ( Amer) 77.5 ml/min Est GFR (Non-Af Amer) 66.9 ml/min BUN/Creatinine Ratio 20.2 H (10-20) Glucose 92 (70-99(Fasting)) mg/dl Lactate (0.4-2.0) mmol/L Calcium 9.7 (8.5-10.1) mg/dl C-Reactive Protein 3.04 H (0-0.5) mg/dl SARS-CoV-2, RNA, NAAT (NEGATIVE) 10/06/21 10/06/21 Range/Units 21:55 22:45 WBC (4.8-10.8) K/ul RBC (3.93-5.22) M/uL Hgb (12.0-16.0) g/dl Hct (34.1-44.9) % MCV (80.0-100.0) fL MCH (25.0-34.0) pg MCHC (32.0-36.0) g/dL RDW Std Deviation (36.4-46.3) fL RDW Coeff of Jorge (11.5-14.5) % Plt Count (130-400) K/uL MPV (9.4-12.3) fL Immature Gran % (Auto) % Neut % (Auto) % Lymph % (Auto) % Barbour % (Auto) % Eos % (Auto) % Baso % (Auto) % Neut # (Auto) (1.4-6.5) K/uL Lymph # (Auto) (1.2-3.4) K/uL Barbour # (Auto) (0.24-0.82) K/uL Eos # (Auto) (0-0.50) K/uL Baso # (Auto) (0-0.2) K/uL Immature Gran # (Auto) (0.00-0.02) K/uL ESR (0-30) mm/hr Sodium (136-145) mmol/L Potassium (3.5-5.1) mmol/L Chloride (98-107) mmol/L Carbon Dioxide (21-32) mmol/L Anion Gap (3-11) BUN (6-23) mg/dl Creatinine (0.6-1.2) mg/dl Est Cr Clr Drug Dosing ml/min Est GFR ( Amer) ml/min Est GFR (Non-Af Amer) ml/min BUN/Creatinine Ratio (10-20) Glucose (70-99(Fasting)) mg/dl Lactate 0.9 (0.4-2.0) mmol/L Calcium (8.5-10.1) mg/dl C-Reactive Protein (0-0.5) mg/dl SARS-CoV-2, RNA, NAAT NEGATIVE (NEGATIVE) Administered Medications Discontinued Medications Acetaminophen (Acetaminophen 500 Mg Tab) 1,000 mg PO NOW STA Stop: 10/06/21 21:45 Last Admin: 10/06/21 22:06 Dose: 1,000 mg Documented By: DON Sodium Chloride (Nss 1000ml) 1,000 mls @ 999 mls/hr IV .Q1H1M ONE Stop: 10/06/21 22:43 Last Infusion: 10/06/21 23:05 Dose: 0 mls/hr Documented By: Admin: 10/06/21 22:06 Dose: 999 mls/hr Documented By: DON Ceftriaxone Sodium (Rocephin) 2,000 mg in 70 mls @ 140 mls/hr IV NOW STA Stop: 10/06/21 23:12 Last Admin: 10/06/21 23:04 Dose: 140 mls/hr Documented By: DON Imaging Data Radiologist's Impression: Foot X-Ray 10/06/21 21:43 LEFT FOOT 3 VIEWS CLINICAL HISTORY: Left foot infection. Amputation. FINDINGS: 3 views of the left foot are obtained. No prior studies are available for comparison at the time of dictation. The skeletal structures are osteopenic. No acute fracture is seen. There has been amputation of the forefoot through the distal shafts of the metatarsals. There is mild nonspecific periostitis adjacent the resection margin of the first metatarsal. No clear erosion is seen. There is soft tissue edema throughout the stump with small foci of soft tissue gas. A plantar calcaneal enthesophyte is observed. IMPRESSION: 1. Postsurgical change from forefoot amputation as above. 2. There is no definitive radiographic evidence of osteomyelitis. 3. Soft tissue edema is present throughout the forefoot stump with tiny foci of soft tissue gas. This could related to infection, a wound, or recent surgery. Clinical correlation will be essential. Electronically signed by: Matias Becerra M.D. 10/06/2021 11:27 PM Discharge Plan Visit Data Chief Complaint: Infection, Wound Stated Complaint: WOUND INFECTION ED Provider: Melo Mcintosh Discharge Problem: Cellulitis of foot, left, History of amputation of left foot through metatarsal bone Patient Disposition: Being Evaluated by Hospitalist Forms Stand Alone Forms: My [facility] Prescriptions Prescriptions: No Action baclofen 10 mg tablet 20 mg PO TID gabapentin 300 mg capsule 300 mg PO TID trazodone 150 mg tablet 150 mg PO HS methotrexate sodium 2.5 mg tablet 15 mg PO WK Rx Instructions: TAKES ON THURSDAYS folic acid 1 mg tablet 1 mg PO DAILY risperidone 0.5 mg Tablet 0.5 mg PO HS Qty: 30 0RF amantadine HCl 100 mg capsule 100 mg PO BID Referrals Referrals: Srinath Carvajal DO [Primary Care Provider] -
[2021-10-06 21:56] LABS: Basophils # (auto) 0.04 K/uL (0-0.2); Basophils % (auto) 0.4 %; Eosinophils # (auto) 0.09 K/uL (0-0.50); Hematocrit (blood only) 42.3 % (34.1-44.9); Hemoglobin 14.4 g/dl (12.0-16.0); Immature Granulocytes # (auto) 0.03 K/uL (0.00-0.02); Immature Granulocytes % (auto) 0.3 %; Lymphocytes # (auto) 1.02 K/uL (1.2-3.4); Lymphocytes % (auto) 10.8 %; Mean Corpuscular Hemoglobin 31.4 pg (25.0-34.0); Mean Corpuscular Volume 92.2 fL (80.0-100.0); Mean Platelet Volume 10.9 fL (9.4-12.3); Monocytes # (auto) 0.76 K/uL (0.24-0.82); Neutrophils # (auto) 7.51 K/uL (1.4-6.5); Neutrophils % (auto) 79.5 %; Platelet Count 243 K/uL (130-400); RDW Coefficient of Variation 13.8 % (11.5-14.5); RDW Standard Deviation 46.4 fL (36.4-46.3); Red Blood Count 4.59 M/uL (3.93-5.22); White Blood Count 9.45 K/ul (4.8-10.8)
[2021-10-06 22:19] LABS: BUN Creatinine Ratio 20.2 (10-20); C Reactive Protein 3.04 mg/dl (0-0.5); Calcium 9.7 mg/dl (8.5-10.1); Creatinine Clr Calc Pharmacy 65.4 ml/min; Est GFR (African American) 77.5 ml/min; Est GFR (Non-African American) 66.9 ml/min; Potassium 3.8 mmol/L (3.5-5.1)
[2021-10-06] MEDS ORDERED: VANCOMYCIN HCL 1,750 MG in SODIUM CHLORIDE 0.9% 500 ML IV ONE (22:43)
[2021-10-06] MEDS ORDERED: cefTRIAXone SODIUM 2,000 MG/70 ML BAG IV STA (22:43)
[2021-10-06] MEDS ORDERED: VANCOMYCIN CONSULT ACTIVE PRN (22:43)
--- NOTE | 2021-10-06 23:28 | XRay Report ---
LEFT FOOT 3 VIEWS CLINICAL HISTORY: Left foot infection. Amputation. FINDINGS: 3 views of the left foot are obtained. No prior studies are available for comparison at the time of dictation. The skeletal structures are osteopenic. No acute fracture is seen. There has been amputation of the forefoot through the distal shafts of the metatarsals. There is mild nonspecific p eriostitis adjacent the resection margin of the first metatarsal. No clear erosion is seen. There is soft tissue edema throughout the stump with small foci of soft tissue gas. A plantar calcaneal enthes ophyte is observed. IMPRESSION: 1. Postsurgical change from forefoot amputation as above. 2. There is no definitive radiographic evidence of osteomyelitis. 3. Soft tissue edema is present throughout the forefoot stump with tiny foci of soft tissue gas. This could related to infection, a wound, or recent surgery. Clinical correlation will be essential. Electronically signed by: Matias Becerra M.D. 10/06/2021 11:27 PM
[2021-10-07] MEDS ORDERED: POLYETHYLENE (MIRALAX) 17 GM PACK PO PRN (01:21)
[2021-10-07] MEDS ORDERED: ONDANSETRON INJ 2 MG/ML 2 ML VIAL IV PRN (01:21)
[2021-10-07] MEDS ORDERED: PIPERACILLIN/TAZOBACTAM 3.375 GM in DEXTROSE 5% 100 ML IV ONE (02:00)
--- NOTE | 2021-10-07 02:01 | History and Physical Report ---
DATE OF ADMISSION: 10/06/2021. CHIEF COMPLAINT: Left foot TMA site infection. HISTORY OF PRESENT ILLNESS: This is a 56-year-old female with past medical history significant for osteoarthritis, history of chronic elbow pain, history of abnormal involuntary movement, history of rheumatoid arthritis involving multiple sites with positive rheumatoid factor, history of depression, posttraumatic stress disorder, the patient recently had left foot TMA presents with infection of the surgical site. The patient says it is draining last few days.. States few days ago she had fever. Denies any other complaints. Hemodynamically stable. Denies any headache, no dizziness, no blurred visions, no earache, no runny nose, no sore throat, no cough, no chest pain, no shortness of breath, no nausea, once in a while she gets abdominal pain. Normal bowel and bladder movements. ALLERGIES: CEPHALEXIN, CODEINE, BACTRIM. PAST MEDICAL HISTORY: As mentioned above. PAST SURGICAL HISTORY: Amputation of right thumb, amputation of metatarsophalangeal joint of the left foot, colonoscopy, lengthening of the left leg tendon. MEDICATIONS: The patient is on amitriptyline 100 mg p.o. b.i.d., baclofen 20 mg p.o. t.i.d., folic acid 1 mg p.o. daily, gabapentin 300 mg p.o. t.i.d., methotrexate 50 mg p.o. b.i.d., risperidone 0.5 mg p.o. at bedtime, trazodone 150 mg p.o. at bedtime. FAMILY HISTORY: Significant for mother has Alzheimer's disease, paternal cousin has breast cancer, daughter has drug abuse. SOCIAL HISTORY: Single, former smoker. No alcohol, no drug use. REVIEW OF SYSTEMS: As per HPI. Rest of review of systems is negative. PHYSICAL EXAMINATION: GENERAL: The patient is of moderate build, not in acute distress. VITAL SIGNS: Temperature 36.5, pulse 65, respiratory rate 18, blood pressure 154/95, oxygen 94% on room air. HEENT: Pupils equal, round and reactive to light. Oral mucosa moist. NECK: No JVD or neck masses. CARDIOVASCULAR: S1 and S2 heard. Regular rate and rhythm. No murmur, no gallop. RESPIRATORY SYSTEM: Normal AP diameter. No accessory muscle use. No wheezing, no crackles. ABDOMEN: Soft, bowel sounds present, nontender, no distention. CENTRAL NERVOUS SYSTEM: Cranial nerves II through XII grossly intact, nonfocal. EXTREMITIES: Left foot TMA site is erythematous, wet and black eschar seen. LABORATORY DATA: WBC is 9.4, hemoglobin 14.4, hematocrit 42.3, platelets 243. ESR 41. Sodium 138, potassium 3.8, chloride 105, bicarbonate 24, BUN 19, creatinine 0.9, serum glucose 92. Lactate 0.9, calcium 9.7. C-reactive protein 3. SARS-CoV-2 rapid test negative. DIAGNOSTIC DATA: Foot x-ray, postsurgical change of forefoot amputation. No definite radiographic evidence of osteomyelitis, soft tissue edema is present throughout the forefoot stump with tiny foci of soft tissue gas. This could be related to infection of the wound on recent surgery. ASSESSMENT AND PLAN: This is a 56-year-old female who presents with a left transmetatarsal amputation surgical site infection. 1. Left foot status post transmetatarsal amputation surgical site infection. Empirically started on vancomycin and Zosyn. Consult podiatry. Monitor in the hospital. Follow the cultures. Follow the response. 2. History of rheumatoid arthritis. We will hold methotrexate for now. 3. History of depression, on trazodone. 4. Deep venous thrombosis prophylaxis: Sequential compression devices for now. DISPOSITION: Closely monitor in the medical floor. PT/OT prior to discharge. Social service to help with discharge planning. Job ID: [id number] MTDD
[2021-10-07 05:50] LABS: Basophils # (auto) 0.02 K/uL (0-0.2); Basophils % (auto) 0.3 %; Eosinophils # (auto) 0.11 K/uL (0-0.50); Eosinophils % (auto) 1.7 %; Hematocrit (blood only) 36.6 % (34.1-44.9); Hemoglobin 12.3 g/dl (12.0-16.0); Immature Granulocytes # (auto) 0.02 K/uL (0.00-0.02); Immature Granulocytes % (auto) 0.3 %; Lymphocytes # (auto) 1.02 K/uL (1.2-3.4); Lymphocytes % (auto) 15.9 %; Mean Corpuscular Hemoglobin 31.5 pg (25.0-34.0); Mean Corpuscular Hgb Conc 33.6 g/dL (32.0-36.0); Mean Corpuscular Volume 93.6 fL (80.0-100.0); Mean Platelet Volume 10.8 fL (9.4-12.3); Monocytes % (auto) 9.4 %; Neutrophils # (auto) 4.64 K/uL (1.4-6.5); Neutrophils % (auto) 72.4 %; Platelet Count 191 K/uL (130-400); RDW Coefficient of Variation 13.8 % (11.5-14.5); RDW Standard Deviation 47.2 fL (36.4-46.3); Red Blood Count 3.91 M/uL (3.93-5.22); White Blood Count 6.41 K/ul (4.8-10.8)
[2021-10-07 06:38] LABS: BUN Creatinine Ratio 18.9 (10-20); Calcium 8.4 mg/dl (8.5-10.1); Creatinine Clr Calc Pharmacy 84.8 ml/min; Est GFR (African American) 103.5 ml/min; Est GFR (Non-African American) 89.3 ml/min; Magnesium 1.7 mg/dl (1.7-2.4); Potassium 3.4 mmol/L (3.5-5.1)
[2021-10-07] MEDS: ACETAMINOPHEN 325 MG TAB PO PRN ×3 (06:41→21:20)
[2021-10-07] MEDS: PIPERACILLIN/TAZOBACTAM 3.375 GM in DEXTROSE 5% 100 ML IV SCH ×3 (06:41→21:43)
[2021-10-07] MEDS: FOLIC ACID 1 MG TAB PO SCH (09:28)
[2021-10-07] MEDS: GABAPENTIN 300 MG CAP PO SCH ×3 (09:28→21:23)
[2021-10-07] MEDS: AMANTADINE HCL 100 MG CAPSULE PO SCH ×2 (09:28→21:20)
[2021-10-07] MEDS: BACLOFEN 20 MG TAB PO SCH ×3 (09:28→21:22)
[2021-10-07] MEDS ORDERED: POTASSIUM CHLORIDE CRTAB 20 MEQ TABCR PO STA (09:51)
[2021-10-07] MEDS: POTASSIUM CHLORIDE / WTR 10 MEQ/100 ML PLCT IV SCH ×2 (10:42→11:48)
[2021-10-07] MEDS: VANCOMYCIN HCL 1,000 MG in SODIUM CHLORIDE 0.9% 250 ML IV SCH ×2 (12:46→23:38)
--- NOTE | 2021-10-07 16:43 | Progress Notes ---
DATE OF NOTE: 10/07/2021. The patient is 56 years old. She is admitted to the hospital for postoperative infection of her righ t foot. She has a history of rheumatoid arthritis. She reports having deformities of her toes. She was seen by a safety analyst with [facility]. The treatment plan was an amputation through the transmeta tarsal area of the left foot to treat the toe deformity. She had previous surgery on her toe, but valery prajapati reports it is stuck up into the air. In an effort to treat all of the problem, the amputation was elected. This was done 1 month ago in mid August. The stitches were taken out at about 2 weeks after surgery. She reports since the time of the stitches were taken out that there has been some scabs ar ound the wound. She went to urgent care within the last day or two and eventually came here to [facility] where she was admitted. She has had some sweats at home but she denies any measurable fever . PAST MEDICAL HISTORY: Bipolar disorder. She carries a diagnosis of rheumatoid arthritis. She also has a movement disorder. MEDICATIONS: She takes trazodone, risperidone, methotrexate, gabapentin, folic acid, baclofen and am antadine. She does not have a history of bleeding or blood clots. She does not have a known history of MRSA an d does not have an allergy to metals. Her vital signs are stable. She is afebrile here. PHYSICAL EXAMINATION: She has 1+ palpable dorsalis pedis and posterior tibial pulses. She can flex and extend the ankle. She has uncontrolled movements of both upper extremities, her head and also of her left lower extremity does not seem to have abnormal movements of the right leg. There is an esc lito along the inferior wound margin. She has a partial dehiscence of the wound centrally with some n ecrotic tissue present. The medial and lateral margins of the wound are healed, but the central 3-4 cm wound appeared to be completely healed. Towards the lateral side of the wound dorsally, there is an area 3-4 cm wide and irregularly shaped, but 3-4 cm proximal in length of a thick black eschar con sistent with at least superficial epidermal necrosis. There is no purulent drainage, although she do es report some drainage in the past. There is erythema dorsally and plantarly. It is tender to palp ation diffusely. Swelling is mild to moderate. There is no detectable abscess. Radiographs of the foot are reviewed, these show evidence of a transmetatarsal amputation. There is some air in the wound bed, which is consistent with the history of having an open wound. There is no clear-cut evidence of osteomyelitis. There is no fracture or dislocation. IMPRESSION: Postoperative wound infection with dehiscence and wound necrosis involving the left foot transmetatarsal amputation. PLAN: My findings were discussed with the patient. Her circulation is adequate and it is difficult to explain why she has had issues with wound necrosis. The methotrexate is one possible explanation, but she is taking 15 mg by mouth looks weekly. I would recommend that she have local wound care. A dressing, nonadherent elevation. She has a boot. She has been walking on it. We should try to tomasz p her off of this as much as possible. She needs intravenous antibiotics and is currently it looks l caro she is on vancomycin. She has received ceftriaxone [facility] I gave her three options, one is to treat this with antibiotics and wound care. I think that this hodges s a low likelihood of resolving the problem. Second option is surgical intervention either here or e lsewhere. Surgically, we will need to debride the wound and see what the status of the soft tissues and the coverage is. It is possible that this is all superficial and that the bone is not involved. However, if there is exposed bone or inadequate soft tissue coverage, then probably the first step i s a revision transmetatarsal amputation simply shortening the existing amputation. If this is not pos sible or does not work, then I discussed with her that she may require amputation at a higher level a nd this could be something in and around the ankle or below the knee. The third option, I gave her w as to be transferred to a [facility] facility where she could see the safety analyst who initially did her surgery. She wishes to have surgery here. I checked into the OR and we would not be able to start until much later tonight. I think given the circumstances that it will be reasonable to add this on tomorrow. I did an informed consent. She can eat now and will be n.p.o. after midnight. She does n ot require any chemo DVT prophylaxis currently. We will reevaluate postoperatively. She might need a wound VAC or Stimulan beads. She will likely need wound care as well. She is booked in to the OR. N.p.o. after midnight. Her white count is normal, hemoglobin 12, hematocrit is 36 today, platelets are 191. Her PRP is note d. COVID negative. She does not have a history of diabetes. She has no issues with seizures, lung disease, heart attacks, cancers, neuropathy. Job ID: [id number]
[2021-10-07] MEDS: traZODone HCL 50 MG TAB PO SCH (21:22)
[2021-10-07] MEDS: risperiDONE 0.5 MG TABLET PO SCH (21:23)
--- NOTE | 2021-10-07 22:09 | Hospitalist Progress Note ---
Date of Service October 07, 2021 Assessment & Plan (1) Status post amputation of left foot through metatarsal bone: Plan: Left foot status post transmetatarsal amputation infection. Foot xray showed postsurgical change from forefoot amputation. There is no definitive radiographic evidence of osteomyelitis.Soft tissue edema is present throughout the forefoot stump with tiny foci of soft tissue gas. Continue IV vancomycin and Zosyn. Blood culture and wound culture pending Ortho consulted Plan for possible debridement procedure tomorrow Will make NPO after midnight Will add pain control Continue monitor closely History of rheumatoid arthritis. Continue to hold methotrexate for now. History of depression continue trazodone. Deep venous thrombosis prophylaxis: Sequential compression devices for now. Code status Full code Admission and Anticipated Discharge Date Admission Date: October 06, 2021 Subjective Patient was seen and evaluated for follow-up of left foot status post first metatarsal amputation infection Lying in bed with no acute distress watching TV Patient said she is having pain in the left foot incision Denies any chest pain, palpitation, dizziness, shortness of breath. Review of Systems Review of Systems: General- No acute distress Head- atraumatic Eyes- PERRL, EOMI, ENT- oropharynx clear Neck- supple, no JVD Lungs- clear to auscultation Heart- regular rhythm; no murmur Abdomen- normal bowel sounds, soft, nontender Extremities- no calf tenderness, +Left foot TMA site is erythematous, +tender to touch, + black eschar seen. Neuro- alert, oriented x 3; PERRL, EOMI; no facial palsy; no dysarthria Skin- warm & dry Results & Data Results & Data ([facility]) Vital Signs (Past 12 Hours) Vital Signs Temp Pulse Resp Pulse Ox O2 Del Method 10/07/21 15:10 37.0 C 85 18 93 Room Air
[2021-10-08] MEDS: PIPERACILLIN/TAZOBACTAM 3.375 GM in DEXTROSE 5% 100 ML IV SCH ×3 (05:24→21:31)
[2021-10-08 07:15] LABS: Hematocrit (blood only) 37.3 % (34.1-44.9); Hemoglobin 12.4 g/dl (12.0-16.0); Mean Corpuscular Hemoglobin 31.2 pg (25.0-34.0); Mean Corpuscular Hgb Conc 33.2 g/dL (32.0-36.0); Mean Corpuscular Volume 93.7 fL (80.0-100.0); Mean Platelet Volume 11.1 fL (9.4-12.3); Platelet Count 199 K/uL (130-400); RDW Coefficient of Variation 13.7 % (11.5-14.5); RDW Standard Deviation 46.6 fL (36.4-46.3); Red Blood Count 3.98 M/uL (3.93-5.22); White Blood Count 5.55 K/ul (4.8-10.8)
[2021-10-08] MEDS: BACLOFEN 20 MG TAB PO SCH ×3 (07:33→21:34)
[2021-10-08] MEDS: GABAPENTIN 300 MG CAP PO SCH ×3 (07:33→21:35)
[2021-10-08] MEDS: FOLIC ACID 1 MG TAB PO SCH (07:33)
[2021-10-08] MEDS: AMANTADINE HCL 100 MG CAPSULE PO SCH ×2 (07:33→21:34)
[2021-10-08] MEDS: ACETAMINOPHEN 325 MG TAB PO PRN ×2 (07:33→23:59)
--- NOTE | 2021-10-08 07:43 | Hospitalist Progress Note ---
Date of Service October 08, 2021 Assessment & Plan (1) Status post amputation of left foot through metatarsal bone: Plan: Left foot status post transmetatarsal amputation infection. Foot xray showed postsurgical change from forefoot amputation. There is no definitive radiographic evidence of osteomyelitis.Soft tissue edema is present throughout the forefoot stump with tiny foci of soft tissue gas. Continue IV vancomycin and Zosyn. Blood culture and wound culture pending Ortho consulted s/p Postoperative wound infection with dehiscence and wound necrosis involving the left foot transmetatarsal amputation performed by Dr. Bartholomew Wound cx positive for staph species and corynebacterium Wound cx from the procedure (10/08) pending Continue IV abx Continue wound vac as per ortho Will consult wound care Continue monitor closely History of rheumatoid arthritis. Continue to hold methotrexate for now. History of depression continue trazodone. Deep venous thrombosis prophylaxis: SCD due to recent orthopedic procedure Code status Full code Admission and Anticipated Discharge Date Admission Date: October 06, 2021 Subjective Patient was seen and evaluated for follow-up of left foot status post first metatarsal amputation infection Lying in bed with no acute distress watching TV Pt just get back from the OR for the Left foot procedure Denies any chest pain, palpitation, dizziness, shortness of breath. Review of Systems Review of Systems: General- No acute distress Head- atraumatic Eyes- PERRL, EOMI, ENT- oropharynx clear Neck- supple, no JVD Lungs- clear to auscultation Heart- regular rhythm; no murmur Abdomen- normal bowel sounds, soft, nontender Extremities- no calf tenderness, +Left foot TMA site is erythematous, +tender to touch, + black eschar seen. Neuro- alert, oriented x 3; PERRL, EOMI; no facial palsy; no dysarthria Skin- warm & dry Physical Exam Physical Exam: General- No acute distress Head- atraumatic Eyes- PERRL, EOMI, ENT- oropharynx clear Neck- supple, no JVD Lungs- clear to auscultation Heart- regular rhythm; no murmur Abdomen- normal bowel sounds, soft, nontender Extremities- no calf tenderness, +Left foot TMA site is erythematous, +wound vac in place Neuro- alert, oriented x 3; PERRL, EOMI; no facial palsy; no dysarthria Skin- warm & dry Results & Data Results & Data ([facility]) Vital Signs (Past 12 Hours) Vital Signs Temp Pulse Resp BP Pulse Ox O2 Del Method 10/07/21 22:51 36.7 C 68 18 158/77 H 94 Room Air
[2021-10-08 07:56] LABS: BUN Creatinine Ratio 20.2 (10-20); Calcium 8.9 mg/dl (8.5-10.1); Creatinine Clr Calc Pharmacy 74.7 ml/min; Est GFR (African American) 88.8 ml/min; Est GFR (Non-African American) 76.6 ml/min; Potassium 3.6 mmol/L (3.5-5.1)
--- NOTE | 2021-10-08 09:23 | Pharmacy Report ---
Pharmacy PK ABX Note - Date of Service October 08, 2021 - Assessment and Plan Assessment 56 year old F receiving vancomycin/Zosyn for treatment of L foot TMA site infection. Pertinent microbiologic data includes: wound culture with Gram stain of moderate Gram positive cocci and few Gram positive bacilli. Day # 3 of antimicrobial therapy. Plan Vancomycin * Maintenance dose: 1000 mg IV every 12 hours * Regimen is predicted to achieve target AUC/ELTON of 400-600 mg/L.hr * Additional level ordered if patient remains > 5 days Pharmacy will continue to follow and will adjust dose/frequency as necessary. Thank you. Pharmacy has transitioned to AUC monitoring for vancomycin. AUC/ELTON is the preferred PK/PD target and is associated with decreased risk of nephrotoxicity compared to traditional trough targets.
[2021-10-08] MEDS ORDERED: LIDOCAINE 1% LOCAL 20 ML VIAL ONE (11:20)
[2021-10-08] MEDS ORDERED: BUPIVACAINE/EPINEPHRINE 0.25% 1:200,000 30 ML VIAL ONE (11:20)
[2021-10-08] MEDS ORDERED: GENTAMICIN SULFATE 40 MG/ML 2 ML VIAL ONE (11:36)
[2021-10-08] MEDS ORDERED: VANCOMYCIN HCL 1000MG/20ML VIAL ONE (11:36)
--- NOTE | 2021-10-08 11:42 | History & Physical Bridge Note ---
Date of Service October 08, 2021 History & Physical Bridge Note I have examined the patient, reviewed the History & Physical and in the interval since the performance of the History & Physical I have noted the following changes of clinical significance: no changes noted We are working on the left. There is some drainage on the dressing. The marginal necrosis remains. Erythema is diminished. There is edema present and she has 1+ dorsalis pedis pulse. No change in health status. Hospitalist note reviewed.
--- NOTE | 2021-10-08 11:47 | Anesthesiology Consultation ---
Date of Service October 08, 2021 Assessment & Plan Chart Review Chart Review: Acceptable Risk for Surgery Consults Requested none History Surgery Operation Date: 10/08/21 09:00 Proposed Procedures p Amputation Transmetatarsal(Left) - Danilo Bartholomew MD Height/Weight Height: 5 ft 2 in Weight: 86.9 kg Allergies Allergy/AdvReac Type Severity Reaction Status Date / Time cephalexin Allergy Intermediate MOUTH AND Verified 10/06/21 22:13 THROAT BLISTERED codeine Allergy Intermediate Hives Verified 10/06/21 22:13 sulfamethoxazole Allergy Intermediate Hives Verified 10/06/21 22:13 trimethoprim Allergy Intermediate Hives Verified 10/06/21 22:13 Medications Home Medications Medication Instructions Recorded Confirmed Last Taken baclofen 10 mg tablet 20 mg PO TID 08/27/18 10/06/21 10/06/21 14:00 gabapentin 300 mg capsule 300 mg PO TID 08/27/18 10/06/21 10/06/21 14:00 folic acid 1 mg tablet 1 mg PO DAILY 07/06/20 10/06/21 10/06/21 methotrexate sodium 2.5 mg tablet 15 mg PO WK 07/06/20 10/06/21 10/05/21 risperidone 0.5 mg tablet 0.5 mg PO HS #30 tabs 07/11/20 10/06/21 10/05/21 trazodone 150 mg tablet 150 mg PO HS 07/30/20 10/06/21 10/05/21 amantadine HCl 100 mg capsule 100 mg PO BID 10/06/21 10/06/21 10/06/21 08:00 Active Medications Generic Name Dose Route Start Last Admin Trade Name Toney PRN Reason Stop Dose Admin Acetaminophen 650 mg 10/07/21 01:21 10/08/21 07:33 Acetaminophen 325 Mg Tab PO 11/06/21 01:20 650 mg Q4H PRN Administration pain/fever Amantadine HCl 100 mg 10/07/21 09:00 10/08/21 07:33 Amantadine Hcl 100 Mg Capsule PO 11/06/21 08:59 100 mg BID SHANNON Administration Baclofen 20 mg 10/07/21 09:00 10/08/21 07:33 Baclofen 20 Mg Tab PO 11/06/21 08:59 20 mg TID SHANNON Administration Folic Acid 1 mg 10/07/21 09:00 10/08/21 07:33 Folic Acid 1 Mg Tab PO 11/06/21 08:59 1 mg DAILY SHANNON Administration Gabapentin 300 mg 10/07/21 09:00 10/08/21 07:33 Gabapentin 300 Mg Cap PO 11/06/21 08:59 300 mg TID SHANNON Administration Piperacillin Sod/Tazobactam 115 mls @ 28.75 mls/hr 10/07/21 06:00 10/08/21 09:28 Sod 3.375 gm/ Dextrose IV 10/14/21 05:59 Infused Q8H SHANNON Infusion Protocol Vancomycin HCl 1,000 mg/ 270 mls @ 200 mls/hr 10/07/21 12:00 10/08/21 02:13 Sodium Chloride IV 10/14/21 11:59 Infused Q12H SHANNON Infusion Risperidone 0.5 mg 10/07/21 21:00 10/07/21 21:23 Risperidone 0.5 Mg Tablet PO 11/06/21 20:59 0.5 mg HS SHANNON Administration Trazodone HCl 150 mg 10/07/21 21:00 10/07/21 21:22 Trazodone Hcl 50 Mg Tab PO 11/06/21 20:59 150 mg HS SHANNON Administration NPO Date Last Intake of Fluids: 10/08/21 Time Last Intake of Fluids: 06:00 Last Intake of Fluids Comment: water Date Last Intake of Solids: 10/07/21 Time Last Intake of Solids: 17:30 Past Medical History Medical History (Updated 10/06/21 @ 22:45 by eMlo Mcintosh M.D.) Bipolar 1 disorder Migraine Posttraumatic stress disorder UTI (urinary tract infection) Past Family History Family History Other Family history unknown Past Surgical History Surgical History (Updated 10/08/21 @ 02:13 by Nestor Sierra MD) History of amputation of right thumb History of foot surgery Social History Smoking Status: Former smoker tobacco type: cigarettes Smoking cigarettes per day: Use to smoke a pack a day. Do You Dip or Chew Tobacco: No Smoking End Date: 30 years ago. Hx Alcohol Use: No Hx Substance Use: No Physical Exam Vital Signs Last Vital Signs Temp 36.8 C 10/08/21 08:06 Pulse 54 L 10/08/21 08:06 Resp 18 10/08/21 08:06 BP 157/88 H 10/08/21 08:06 Pulse Ox 96 10/08/21 08:06 O2 Del Method 10/08/21 08:06 Testing Laboratory Results 10/08/21 06:54 10/08/21 06:54 10/06/21 21:55 Aerobic Blood Culture - Preliminary Blood No growth in Aerobic bottle after 24 hours. Anaerobic Blood Culture - Preliminary No growth in Anaerobic bottle after 24 hours. 10/06/21 21:40 Aerobic Blood Culture - Preliminary Blood No growth in Aerobic bottle after 24 hours. Anaerobic Blood Culture - Preliminary No growth in Anaerobic bottle after 24 hours. 10/06/21 21:40 Gram Stain - Final Foot,Left Wound Culture - Preliminary Pin-point growth present, reincubating.
[2021-10-08] MEDS ORDERED: HYDROmorphone INJ 2 MG/ML SYR/VIAL IV PRN (11:50)
[2021-10-08] MEDS ORDERED: ePHEDrine sulfate 50 MG/ML AMP IV PRN (11:50)
[2021-10-08] MEDS ORDERED: PROMETHAZINE HCL 12.5 MG in SODIUM CHLORIDE 0.9% 50 ML IV PRN (11:50)
[2021-10-08] MEDS ORDERED: ATROPINE SULFATE 0.1 MG/ML 10ML SYR IV PRN (11:50)
[2021-10-08] MEDS ORDERED: ONDANSETRON INJ 2 MG/ML 2 ML VIAL IV PRN (11:50)
[2021-10-08] MEDS ORDERED: LIDOCAINE 2% 2 ML VIAL/AMP(20MG/ML) INFIL ONE (11:51)
[2021-10-08] MEDS ORDERED: fentaNYL citrate 100 MCG/2 ML VIAL ONE ×2 (11:51→13:49)
[2021-10-08] MEDS ORDERED: PROPOFOL IV EMULSION 10 MG/ML 20 ML VIAL IV ONE (11:51)
[2021-10-08] MEDS ORDERED: MIDAZOLAM HCL 1 MG/ML 2ML VIAL ONE (11:51)
[2021-10-08] MEDS ORDERED: THROMBIN FOR SOLN 20000 UNIT KIT ONE (12:44)
[2021-10-08] MEDS ORDERED: GELATIN SPONGE SZ 100 ONE (12:44)
[2021-10-08] MEDS ORDERED: ePHEDrine sulfate 50 MG/ML AMP ONE (13:19)
[2021-10-08] MEDS ORDERED: ONDANSETRON INJ 2 MG/ML 2 ML VIAL ONE (13:19)
--- NOTE | 2021-10-08 13:39 | Operative Report ---
Post Operative Report Pre & Post Diagnosis Operation Date: 10/08/21 09:00 Pre-Op Diagnosis: Postoperative wound infection with dehiscence and wound necrosis involving the left foot transmetatarsal amputation. Post-Op Diagnosis: Postoperative wound infection with dehiscence and wound necrosis involving the left foot transmetatarsal amputation. I identified the patient and participated in the time-out.: Yes Procedure Operation Date: 10/08/21 09:00 Actual Procedures Sharp excisional debridement, irrigation, application of wound VAC Surgeon Danilo Bartholomew MD Hvac Technician Residential None Estimated Blood Loss 25 Findings Consistent with Post-Op Diagnosis Specimens Culture of left foot x1 for aerobic anaerobic and gram stain Anesthesia Type General Complications none Disposition Accompanied Patient To Recovery: No Disposition: Recovery Room Indications Patient is 56 years old. She is 1 month out from a transmetatarsal amputation done elsewhere. She has developed of wound necrosis and infection. She is admitted to the hospital for intravenous antibiotics and is taken to surgery for debridement of her wound. Description of Procedure Informed consent obtained. Patient identified. She identified the operative site as the left foot. I marked with my initials and a preop surgical timeout performed. Preop dose of IV antibiotics was given she was taken to the operating room positioned supine on the OR table a bump was placed under the left thigh and a tourniquet on the left leg as well. The leg was prescribed and prepped and draped in the usual sterile fashion with Betadine. DVT prophylaxis with an SCD intraoperatively and likewise the same postoperatively accompanied by early mobility. The limb was exsanguinated with the Esmarch wrapping it from the ankle up. Tourniquet inflated 250 mmHg. There was epidermal slough around the entire wound which was removed. There were at least 3 sutures which were retained which were removed. I had noted some absorbable sutures deep more deeply and these were removed as encountered. The wound itself was about 5 or 6 cm medial to lateral. The lateral arm was about 4 or 5 cm and the hypotony use about 6 or 7 cm. There was no marginal wound necrosis of the distal flap. Most of the central portion of the proximal flap was necrotic and this peeled off as a thick black eschar. Once this had been done I took a deep culture of the central wound which was entirely necrotic. I then did sharp excisional debridement of the entire wound margin with a scalpel and then debrided with a curette and rongeur removing copious amount of necrotic tissue from the wound bed. An exposed extensor tendon was debrided and amputated and allowed to retract proximally. The tourniquet was let down after 30 minutes of inflation. The wound was irrigated with sterile saline 3 L. Meticulous hemostasis was achieved with pressure Marcaine and epinephrine and eventually Gelfoam and thrombin. There was a good of the wound bed. All of the unhealthy tissue was removed. The margins were then 6 x 5 x 7. Most of it was 4 to 5 mm in depth and the distal central portion was a centimeter deep. There was no exposed bone or tendon. There was fat necrosis of the distal flap and this was thoroughly debrided. I then elected to proceed with a wound VAC. A silver wound VAC sponge was precut applied in the wound bed and then the wound VAC dressing was constructed in the usual fashion and deployed without incident. Patient was awake from anesthesia difficulty taken to the recovery room in stable condition there were no complications. The culture was obtained. Counts were correct and blood loss is estimated to be 25 cc. Patient had no contact listed. Plan is to elevate. Rest weight-bear as tolerated IV antibiotics. Wound VAC and wound care consult. Possible infectious diseases consult per primary team. At this time I think it is very optimistic that we can treat this without further ablative surgery. Quarter percent Marcaine with epinephrine was instilled into the wound topically. There was erythema and edema throughout most notably on the dorsum of the foot there is no abscess or purulence encountered she had good 1+ dorsalis pedis and posterior tib pulses with profuse bleeding from the wound blood. I attest to the content of the Intraoperative Record and any orders documented therein. Any exceptions are noted below.
[2021-10-08] MEDS: fentaNYL citrate 100 MCG/2 ML VIAL IV PRN ×2 (13:50→14:00)
--- NOTE | 2021-10-08 14:17 | Anesthesiology Progress Note ---
Date of Service October 08, 2021 Anesthesia Post Procedure Vital Signs Vital Signs: Temp Pulse Pulse Resp BP Pulse Ox O2 Del Method 10/08/21 14:05 58 L 10 L 132/68 91 Oxymask 10/08/21 13:55 53 L 14 141/69 H 96 Oxymask 10/08/21 13:45 54 L 21 150/76 H 96 Oxymask 10/08/21 13:35 36.2 C L 51 L 15 167/74 H 97 Oxymask 10/08/21 08:06 36.8 C 54 L 18 157/88 H 96 Room Air 10/07/21 22:51 36.7 C 68 18 158/77 H 94 Room Air 10/07/21 15:10 37.0 C 85 18 93 Room Air O2 Flow Rate 10/08/21 14:05 4 10/08/21 13:55 4 10/08/21 13:45 4 10/08/21 13:35 4 10/08/21 08:06 10/07/21 22:51 10/07/21 15:10 Pain Intensity Left Foot: Pain Intensity: 10 Transfer of Care Handoff Completed per policy Notes Mental Status: alert / awake / arousable and participated in evaluation Patient Amnestic to Procedure: Yes Nausea / Vomiting: adequately controlled Pain: adequately controlled Airway Patency, RR, SpO2: stable & adequate BP & HR: stable & adequate Hydration State: stable & adequate Anesthetic Complications: no major complications apparent
[2021-10-08] MEDS ORDERED: SODIUM CHLORIDE 0.9% 1000ML 1,000 ML IV SCH (14:31)
[2021-10-08] MEDS ORDERED: bisacodyL 10 MG SUPP PR PRN (14:31)
[2021-10-08] MEDS ORDERED: NALOXONE HCL 0.4 MG/1 ML VIAL/CARP IV PRN (14:31)
[2021-10-08] MEDS ORDERED: traMADol HCL 50 MG TABLET PO PRN (14:31)
[2021-10-08] MEDS: VANCOMYCIN HCL 1,000 MG in SODIUM CHLORIDE 0.9% 250 ML IV SCH (14:32)
[2021-10-08] MEDS ORDERED: METOCLOPRAMIDE HCL INJ 5 MG/ML 2 ML VIAL IV STA (14:41)
[2021-10-08] MEDS: KETOROLAC 30 MG/ML VIAL IV PRN (15:12)
[2021-10-08] MEDS: risperiDONE 0.5 MG TABLET PO SCH (21:34)
[2021-10-08] MEDS: SENNA 8.6 MG TAB PO SCH ×2 (21:34→21:43)
[2021-10-08] MEDS: DOCUSATE SODIUM 100 MG CAP PO SCH ×2 (21:34→21:43)
[2021-10-08] MEDS: traZODone HCL 50 MG TAB PO SCH (21:35)
[2021-10-09] MEDS: VANCOMYCIN HCL 1,000 MG in SODIUM CHLORIDE 0.9% 250 ML IV SCH ×2 (00:17→11:07)
[2021-10-09] MEDS: PIPERACILLIN/TAZOBACTAM 3.375 GM in DEXTROSE 5% 100 ML IV SCH (05:30)
[2021-10-09] MEDS: KETOROLAC 30 MG/ML VIAL IV PRN (05:31)
[2021-10-09 06:24] LABS: Hematocrit (blood only) 33.9 % (34.1-44.9); Hemoglobin 10.9 g/dl (12.0-16.0); Mean Corpuscular Hemoglobin 31.2 pg (25.0-34.0); Mean Corpuscular Hgb Conc 32.2 g/dL (32.0-36.0); Mean Corpuscular Volume 97.1 fL (80.0-100.0); Mean Platelet Volume 11.1 fL (9.4-12.3); Platelet Count 180 K/uL (130-400); RDW Coefficient of Variation 14.1 % (11.5-14.5); RDW Standard Deviation 49.9 fL (36.4-46.3); Red Blood Count 3.49 M/uL (3.93-5.22); White Blood Count 5.35 K/ul (4.8-10.8)
[2021-10-09 06:51] LABS: BUN Creatinine Ratio 19.1 (10-20); Calcium 8.3 mg/dl (8.5-10.1); Creatinine Clr Calc Pharmacy 66.8 ml/min; Est GFR (African American) 77.5 ml/min; Est GFR (Non-African American) 66.9 ml/min; Potassium 3.7 mmol/L (3.5-5.1)
[2021-10-09] MEDS: DOCUSATE SODIUM 100 MG CAP PO SCH ×2 (07:29→21:34)
[2021-10-09] MEDS: FOLIC ACID 1 MG TAB PO SCH (07:31)
[2021-10-09] MEDS: AMANTADINE HCL 100 MG CAPSULE PO SCH (07:31)
[2021-10-09] MEDS: ACETAMINOPHEN 325 MG TAB PO PRN ×2 (07:31→20:01)
[2021-10-09] MEDS: BACLOFEN 20 MG TAB PO SCH ×3 (07:31→21:36)
[2021-10-09] MEDS: GABAPENTIN 300 MG CAP PO SCH ×3 (07:31→21:37)
--- NOTE | 2021-10-09 09:38 | Orthopedic Progress Note ---
Date of Service October 09, 2021 Assessment & Plan (1) Status post incision and drainage: Plan: POD1 s/p left foot I&D with debridement, irrigation and wound vac placement Patient is doing well this morning. No issues with wound vac WBAT with walker PT/OT Diet - regular Elevate left foot DVT prophylaxis: per primary Pain control: per primary Continue Abx: pt currently on Vancomycin and Zosyn Wound care consulted for wound vac/dressing change. Currently in tact, suc tioning properly with 25mL in canister Follow up with Dr Bartholomew in 10-14 days at [facility] Orthopedics vac dressing reinforced, no leak Admission and Anticipated Discharge Date Admission Date: October 06, 2021 Subjective Pt was seen and examined bedside. POD #1 s/p left foot I&D with debridement, irrigation and wound vac placement. Pt had transmetatarsal amputation once month ago at [facility] and subsequently sustained infection and wound dehiscence. Pt admitted to medicine service. No major events over night. Vitals and labs stable. Blood cultures negative. Gram stain shows gram positive cocci, culture spending. Pt reports they are doing well this morning and pain is controlled. They are feeling better than they were yesterday. They are tolerating PO intake. Pt is walking with walker and weight bearing through heel which she said was somewhat painful for her to do. Pt denies F/C, N/V/D, SOB, CP. Physical Exam Physical Exam: General: Pt laying in hospital bed AA&O, in NAD, calm and cooperative during exam Lower Extremity: Patient had transmetatarsal amputation 1 month ago. Wound vac in tact and suctioning properly with no breaks in the seal. 25ml dakr brown/red drainage in canister. Some erythema surrounding skin edges. Nothing tracking proximally. Pt has full ROM of ankle. NVI. Lower extremity noted to have good color and temperature with no signs of vascular or lymphatic insufficiency. Results & Data ([facility]) Vital Signs (Past 12 Hours) Vital Signs Temp Pulse Resp BP Pulse Ox O2 Del Method O2 Flow Rate 10/09/21 07:46 36.5 C 64 18 118/75 90 Room Air 10/09/21 03:24 36.6 C 63 18 141/79 H 97 Nasal Cannula 1.0 10/08/21 22:36 36.8 C 63 18 139/84 95 Nasal Cannula 1.0 Laboratory Results 10/09/21 10/09/21 Range/Units 05:59 05:59 WBC 5.35 (4.8-10.8) K/ul RBC 3.49 L (3.93-5.22) M/uL Hgb 10.9 L (12.0-16.0) g/dl Hct 33.9 L (34.1-44.9) % MCV 97.1 (80.0-100.0) fL MCH 31.2 (25.0-34.0) pg MCHC 32.2 (32.0-36.0) g/dL RDW Std Deviation 49.9 H (36.4-46.3) fL RDW Coeff of Jorge 14.1 (11.5-14.5) % Plt Count 180 (130-400) K/uL MPV 11.1 (9.4-12.3) fL Sodium 141 (136-145) mmol/L Potassium 3.7 (3.5-5.1) mmol/L Chloride 111 H (98-107) mmol/L Carbon Dioxide 25 (21-32) mmol/L Anion Gap 5 (3-11) BUN 18 (6-23) mg/dl Creatinine 0.94 (0.6-1.2) mg/dl Est Cr Clr Drug Dosing 66.8 ml/min Est GFR ( Amer) 77.5 ml/min Est GFR (Non-Af Amer) 66.9 ml/min BUN/Creatinine Ratio 19.1 (10-20) Glucose 94 (70-99(Fasting)) mg/dl Calcium 8.3 L (8.5-10.1) mg/dl
[2021-10-09] MEDS: cefTRIAXone SODIUM 2,000 MG in DEXTROSE 5% 50 ML IV SCH (14:09)
--- NOTE | 2021-10-09 16:35 | Hospitalist Progress Note ---
Date of Service October 09, 2021 Assessment & Plan (1) Status post amputation of left foot through metatarsal bone: Plan: Infected Left foot status post transmetatarsal amputation Foot xray showed postsurgical change from forefoot amputation. There is no definitive radiographic evidence of osteomyelitis.Soft tissue edema is present throughout the forefoot stump with tiny foci of soft tissue gas Ortho consulted s/p day #1 1 s/p left foot I&D with debridement, irrigation and wound vac placement of the infected left foot transmetatarsal amputation performed by Dr. Bartholomew Wound cx positive for staph species and corynebacterium Wound cx from the procedure (10/08) grew staph sepcies IV vancomycin and Zosyn discontinue Will changed abx to rocephin IV Continue wound vac as per ortho Wound care on board ID consult for antibiotic duration PT/OT eval History of rheumatoid arthritis. Continue to hold methotrexate for now. History of depression continue trazodone. Deep venous thrombosis prophylaxis: SCD due to recent orthopedic procedure Code status Full code Disposition PT/OT eval Follow up with Dr Bartholomew in 10-14 days at [facility] Orthopedics Admission and Anticipated Discharge Date Admission Date: October 06, 2021 Subjective Patient was seen and evaluated for post op follow-up of left foot status post first metatarsal amputation infection Lying in bed with no acute distress watching TV Pt said that pain tolerable that comes on/off Denies any chest pain, palpitation, dizziness, shortness of breath. Review of Systems Review of Systems: All systems reviewed & are unremarkable except as noted in Subjective Physical Exam Physical Exam: General- No acute distress Head- atraumatic Eyes- PERRL, EOMI, ENT- oropharynx clear Neck- supple, no JVD Lungs- clear to auscultation Heart- regular rhythm; no murmur Abdomen- normal bowel sounds, soft, nontender Extremities- no calf tenderness, +Left foot TMA site is erythematous, +wound vac in place Neuro- alert, oriented x 3; PERRL, EOMI; no facial palsy; no dysarthria Skin- warm & dry Results & Data Results & Data ([facility]) Vital Signs (Past 12 Hours) Vital Signs Temp Pulse Resp BP Pulse Ox O2 Del Method 10/09/21 14:32 37.1 C 55 L 18 124/78 90 Room Air 10/09/21 11:11 36.8 C 59 L 18 125/64 92 Room Air 10/09/21 07:20 Room Air 10/09/21 07:46 36.5 C 64 18 118/75 90 Room Air
[2021-10-09] MEDS: SENNA 8.6 MG TAB PO SCH (21:35)
[2021-10-09] MEDS: traZODone HCL 50 MG TAB PO SCH (21:37)
[2021-10-09] MEDS: risperiDONE 0.5 MG TABLET PO SCH (21:37)
[2021-10-10 07:56] LABS: Creatinine Clr Calc Pharmacy 76.5 ml/min; Est GFR (African American) 91.4 ml/min; Est GFR (Non-African American) 78.9 ml/min
--- NOTE | 2021-10-10 07:58 | Orthopedic Progress Note ---
Date of Service October 10, 2021 Assessment & Plan (1) Status post incision and drainage: Plan: Continue with wound VAC application and anticipate it will be changed tomorrow by the wound care nurse. We will attempt to be present for wound evaluation. Patient was reassured that she will receive pain medication prior to leaving VAC change. Continue with elevation of the leg and current Rocephin regimen. Blood cultures continue to show no growth at this time. Wound culture shows Staphylococcus species with sensitivities still pending. Admission and Anticipated Discharge Date Admission Date: October 06, 2021 Subjective Patient is seen in her room this morning. She denies any chest pain, shortness of breath, nausea, vomiting, fevers, chills, or sweats. She states the foot remains tender. She states the wound VAC change yesterday was very painful. She would like pain medication before the next VAC change tomorrow. No other complaints. Physical Exam Physical Exam: Patient is afebrile. Left foot has an intact wound VAC dressing. It is functioning. There is minimal drainage within the VAC container. It is less than 20 mL. There is very mild erythema present around the edges of the midfoot wound. No streaking. Small area of skin maceration is present medially at the edge of the wound. She has intact motor function to the ankle. Gross sensation is intact across all aspects of the ankle, hindfoot, and midfoot. She is tender with palpation around the edges of the wound. Capillary refill is equal both dorsal and plantar. Results & Data ([facility]) Vital Signs (Past 12 Hours) Vital Signs Temp Pulse Resp BP Pulse Ox O2 Del Method 10/09/21 19:55 Room Air 10/09/21 22:24 37.2 C 52 L 18 173/96 H 94 Room Air Laboratory Results Labs today show creatinine 0.82.
[2021-10-10] MEDS: AMANTADINE HCL 100 MG CAPSULE PO SCH ×2 (08:34→20:00)
[2021-10-10] MEDS: BACLOFEN 20 MG TAB PO SCH ×3 (08:34→20:00)
[2021-10-10] MEDS: DOCUSATE SODIUM 100 MG CAP PO SCH ×2 (08:35→19:59)
[2021-10-10] MEDS: GABAPENTIN 300 MG CAP PO SCH ×3 (08:35→20:00)
[2021-10-10] MEDS: FOLIC ACID 1 MG TAB PO SCH (08:35)
--- NOTE | 2021-10-10 10:05 | Hospitalist Progress Note ---
Date of Service October 10, 2021 Assessment & Plan (1) Status post amputation of left foot through metatarsal bone: Plan: Infected Left foot status post transmetatarsal amputation Foot xray showed postsurgical change from forefoot amputation. There is no def initive radiographic evidence of osteomyelitis.Soft tissue edema is present throughout the forefoot stump with tiny foci of soft tissue gas Ortho consulted s/p left foot I&D with debridement, irrigation and wound vac placement of the infected left foot transmetatarsal amputation performed by Dr. Bartholomew (10/08/21) Wound cx positive for staph species and corynebacterium Wound cx from the procedure (10/08) grew staph sepcies IV vancomycin and Zosyn discontinue changed abx to rocephin IV Continue wound vac as per ortho Wound care on board ID consult for antibiotic duration PT/OT eval History of rheumatoid arthritis. Continue to hold methotrexate for now. History of depression continue trazodone. Deep venous thrombosis prophylaxis: SCD due to recent orthopedic procedure Code status Full code Disposition PT/OT eval Follow up with Dr Bartholomew in 10-14 days at [facility] Orthopedics Admission and Anticipated Discharge Date Admission Date: October 06, 2021 Subjective Patient was seen and evaluated for post op follow-up of left foot status post first metatarsal amputation infection Lying in bed with no acute distress Pt said that pain tolerable that comes on/off Denies any fever, chills, chest pain, palpitation, dizziness, shortness of breath. Review of Systems Review of Systems: All systems reviewed & are unremarkable except as noted in Subjective Physical Exam Physical Exam: General- No acute distress Head- at raumatic Eyes- PER RL, EOMI, ENT- kendal pharynx clear Neck - supple, no JVD L ungs- clear to aus cultation Heart- r egular rhythm; no murmur Abdomen- no rmal bowel sounds, soft, nontender E xtremities- no ca lf tenderness, +Le ft foot TMA site i s erythematous, +w ound vac in place Neuro- alert, orie nted x 3; PERRL, E RIP; no facial pal sy; no dysarthria Skin- warm & dry Results & Data Results & Data ([facility]) Vital Signs (Past 12 Hours) Vital Signs Temp Pulse Pulse Resp BP BP Pulse Ox 10/10/21 07:57 167/90 H 10/10/21 07:57 36.8 C 52 L 16 174/119 H 93 10/09/21 22:24 37.2 C 52 L 18 173/96 H 94 O2 Del Method 10/10/21 07:57 10/10/21 07:57 Room Air 10/09/21 22:24 Room Air Laboratory Results 10/10/21 Range/Units 07:08 Creatinine 0.82 (0.6-1.2) mg/dl Est Cr Clr Drug Dosing 76.5 ml/min Est GFR ( Amer) 91.4 ml/min Est GFR (Non-Af Amer) 78.9 ml/min Medications Administered Current Inpatient Medications Acetaminophen (Acetaminophen 325 Mg Tab) 650 mg PO Q4H PRN PRN Reason: pain/fever Stop: 11/06/21 01:20 Last Admin: 10/09/21 20:01 Dose: 650 mg Amantadine HCl (Amantadine Hcl 100 Mg Capsule) 100 mg PO BID [facility] Stop: 11/06/21 08:59 Last Admin: 10/10/21 08:34 Dose: 100 mg Baclofen (Baclofen 20 Mg Tab) 20 mg PO TID [facility] Stop: 11/06/21 08:59 Last Admin: 10/10/21 08:34 Dose: 20 mg Bisacodyl (Bisacodyl 10 Mg Supp) 10 mg [place] DAILY PRN PRN Reason: Constipation Stop: 11/07/21 14:30 Docusate Sodium (Docusate Sodium 100 Mg Cap) 100 mg PO BID [facility] Stop: 11/07/21 20:59 Last Admin: 10/10/21 08:35 Dose: Not Given Folic Acid (Folic Acid 1 Mg Tab) 1 mg PO DAILY [facility] Stop: 11/06/21 08:59 Last Admin: 10/10/21 08:35 Dose: 1 mg Gabapentin (Gabapentin 300 Mg Cap) 300 mg PO TID [facility] Stop: 11/06/21 08:59 Last Admin: 10/10/21 08:35 Dose: 300 mg Ceftriaxone Sodium 2,000 mg/ (Dextrose) 70 mls @ 140 mls/hr IV DAILY@1400 [facility]; Protocol Stop: 10/14/21 13:59 Last Infusion: 10/09/21 14:48 Dose: Infused Ketorolac Tromethamine (Ketorolac 30 Mg/Ml Vial) 30 mg IV Q6H PRN PRN Reason: pain Last Admin: 10/09/21 05:31 Dose: 30 mg Naloxone HCl (Naloxone Hcl 0.4 Mg/1 Ml Vial/Carp) 0.1 mg IV Q5M PRN PRN Reason: Oversedation/Resp Depression Stop: 11/07/21 14:30 Ondansetron HCl (Ondansetron Inj 2 Mg/Ml 2 Ml Vial) 4 mg IV Q6H PRN PRN Reason: Nausea Stop: 11/06/21 01:20 Oxycodone HCl (Oxycodone Hcl Ir 5 Mg Tab (Immediate Release)) 5 - 10 mg PO Q4H PRN PRN Reason: Pain or Pre PT Stop: 10/22/21 14:30 Polyethylene Glycol (Polyethylene (Miralax) 17 Gm Pack) 17 gm PO DAILY PRN PRN Reason: Constipation Stop: 11/06/21 01:20 Risperidone (Risperidone 0.5 Mg Tablet) 0.5 mg PO HS [facility] Stop: 11/06/21 20:59 Last Admin: 10/09/21 21:37 Dose: 0.5 mg Sennosides (Senna 8.6 Mg Tab) 17.2 mg PO HS [facility] Stop: 11/07/21 20:59 Last Admin: 10/09/21 21:35 Dose: Not Given Tramadol HCl (Tramadol Hcl 50 Mg Tablet) 50 - 100 mg PO Q4H PRN PRN Reason: Pain & Pre PT Stop: 11/07/21 14:30 Trazodone HCl (Trazodone Hcl 50 Mg Tab) 150 mg PO HS [facility] Stop: 11/06/21 20:59 Last Admin: 10/09/21 21:37 Dose: 150 mg
--- NOTE | 2021-10-10 14:27 | Progress Notes ---
DATE OF SERVICE: 10/10/2021. Improvement is noted. ID consult pending. She is now on Rocephin. No fevers. No labs today. She is resting comfortably with her foot elevated. The wound VAC is functioning properly. There is less erythema and tenderness around the foot. We talked about the wound VAC change tomorrow with the wound care nurse. I will plan on giving her some medicine ahead of time and just in case we will ma ke her n.p.o. I will plan on wound VAC changes 3 times per week. She will need IV antibiotics for s ome duration of time. At this point, I do not think that she needs any further ablative surgery, but we will continue to monitor as healing progresses. Job ID: [id number]
[2021-10-10] MEDS: cefTRIAXone SODIUM 2,000 MG in DEXTROSE 5% 50 ML IV SCH (15:15)
[2021-10-10] MEDS: SENNA 8.6 MG TAB PO SCH (19:59)
[2021-10-10] MEDS: risperiDONE 0.5 MG TABLET PO SCH (20:00)
[2021-10-10] MEDS: traZODone HCL 50 MG TAB PO SCH (20:00)
[2021-10-11 06:52] LABS: Hematocrit (blood only) 34.2 % (34.1-44.9); Hemoglobin 11.5 g/dl (12.0-16.0); Mean Corpuscular Hemoglobin 31.7 pg (25.0-34.0); Mean Corpuscular Hgb Conc 33.6 g/dL (32.0-36.0); Mean Corpuscular Volume 94.2 fL (80.0-100.0); Mean Platelet Volume 10.5 fL (9.4-12.3); Platelet Count 197 K/uL (130-400); RDW Coefficient of Variation 13.7 % (11.5-14.5); RDW Standard Deviation 46.7 fL (36.4-46.3); Red Blood Count 3.63 M/uL (3.93-5.22)
[2021-10-11 07:14] LABS: BUN Creatinine Ratio 24.1 (10-20); Calcium 8.9 mg/dl (8.5-10.1); Creatinine Clr Calc Pharmacy 72.1 ml/min; Est GFR (African American) 85.1 ml/min; Est GFR (Non-African American) 73.4 ml/min; Magnesium 1.7 mg/dl (1.7-2.4); Phosphorus 3.2 mg/dl (2.5-4.9); Potassium 3.5 mmol/L (3.5-5.1)
[2021-10-11] MEDS ORDERED: MoRPHine SULFATE 2 MG/ML CARP IV ONE (08:00)
--- NOTE | 2021-10-11 09:24 | Progress Notes ---
DATE OF SERVICE: 10/11/2021. Resting comfortably in bed. She is afebrile. Her vital signs are stable. Her labs are noted. Whit e count normal. Culture has grown out pansensitive staph. The wound VAC has changed in conjunction w ith the wound care nurse. The wound bed is granulating well. The erythema around the edges have lar mine resolved. There is a little bit of maceration inferiorly, which was addressed with Aquacel Ag. A new wound VAC dressing is applied. There is no drainage or exposed bone. The wound bed is granul ating fabulously. Plan is to continue the wound VAC until this is a healed and possibly do a skin gr aft either a split-thickness or something through the wound clinic. She will need antibiotics for a short period of time intravenously. Infectious Disease is coordinating that. In the meantime, she w ill continue on her Rocephin. She can be up as tolerated, but I encouraged her to be off the foot as much as possible. Job ID: [id number]
[2021-10-11] MEDS: BACLOFEN 20 MG TAB PO SCH ×3 (09:50→21:02)
[2021-10-11] MEDS: GABAPENTIN 300 MG CAP PO SCH ×3 (09:50→21:03)
[2021-10-11] MEDS: DOCUSATE SODIUM 100 MG CAP PO SCH ×2 (09:50→21:03)
[2021-10-11] MEDS: FOLIC ACID 1 MG TAB PO SCH (09:50)
[2021-10-11] MEDS: ACETAMINOPHEN 325 MG TAB PO PRN (09:50)
[2021-10-11] MEDS: AMANTADINE HCL 100 MG CAPSULE PO SCH ×2 (09:50→21:02)
[2021-10-11] MEDS: cefTRIAXone SODIUM 2,000 MG in DEXTROSE 5% 50 ML IV SCH (14:07)
--- NOTE | 2021-10-11 18:19 | Hospitalist Progress Note ---
Date of Service October 11, 2021 Assessment & Plan (1) Status post amputation of left foot through metatarsal bone: Plan: Infected Left foot status post transmetatarsal amputation Foot xray showed postsurgical change from forefoot amputation. There is no def initive radiographic evidence of osteomyelitis.Soft tissue edema is present throughout the forefoot stump with tiny foci of soft tissue gas Ortho consulted s/p left foot I&D with debridement, irrigation and wound vac placement of the infected left foot transmetatarsal amputation performed by Dr. Bartholomew (10/08/21) Wound cx positive for staph species and corynebacterium Wound cx from the procedure (10/08) grew staph species IV vancomycin and Zosyn discontinue changed abx to rocephin IV Continue wound vac as per ortho / wound care nurse Wound care on board ID consult for antibiotic duration PT/OT eval History of rheumatoid arthritis. Continue to hold methotrexate for now. History of depression continue trazodone. DVT prophylaxis: SCD due to recent orthopedic procedure Code status Full code Disposition PT/OT eval Follow up with Dr Bartholomew in 10-[address] [facility] Orthopedics Admission and Anticipated Discharge Date Admission Date: October 06, 2021 Subjective Patient was seen and evaluated for post op follow-up of left foot status post first metatarsal amputationd/t infection Lying in bed in no acute distress Pt said that pain tolerable that comes on/off Denies any fever, chills, chest pain, palpitation, dizziness, shortness of breath. currently on Rocephin IV, wound vac applied Review of Systems Review of Systems: All systems reviewed & are unremarkable except as noted in Subjective Physical Exam Physical Exam: General- No acute distress Head- at raumatic Eyes- PER RL, EOMI, ENT- kendal pharynx clear Neck - supple, no JVD L ungs- clear to aus cultation Heart- r egular rhythm; no murmur Abdomen- no rmal bowel sounds, soft, nontender E xtremities- no ca lf tenderness, +Le ft foot TMA site i s erythematous, +w ound vac in place Neuro- alert, orie nted x 3; PERRL, E RIP; no facial pal sy; no dysarthria Skin- warm & dry Results & Data Results & Data ([facility]) Vital Signs (Past 12 Hours) Vital Signs Temp Pulse Pulse Resp BP BP Pulse Ox 10/11/21 15:14 37.1 C 55 L 14 144/70 H 93 10/11/21 07:14 37.0 C 57 L 16 160/92 H 94 O2 Del Method 10/11/21 15:14 Room Air 10/11/21 07:14 Room Air Laboratory Results 10/11/21 10/11/21 Range/Units 06:44 06:44 WBC 6.50 (4.8-10.8) K/ul RBC 3.63 L (3.93-5.22) M/uL Hgb 11.5 L (12.0-16.0) g/dl Hct 34.2 (34.1-44.9) % MCV 94.2 (80.0-100.0) fL MCH 31.7 (25.0-34.0) pg MCHC 33.6 (32.0-36.0) g/dL RDW Std Deviation 46.7 H (36.4-46.3) fL RDW Coeff of Jorge 13.7 (11.5-14.5) % Plt Count 197 (130-400) K/uL MPV 10.5 (9.4-12.3) fL Sodium 139 (136-145) mmol/L Potassium 3.5 (3.5-5.1) mmol/L Chloride 107 (98-107) mmol/L Carbon Dioxide 28 (21-32) mmol/L Anion Gap 4 (3-11) BUN 21 (6-23) mg/dl Creatinine 0.87 (0.6-1.2) mg/dl Est Cr Clr Drug Dosing 72.1 ml/min Est GFR ( Amer) 85.1 ml/min Est GFR (Non-Af Amer) 73.4 ml/min BUN/Creatinine Ratio 24.1 H (10-20) Glucose 93 (70-99(Fasting)) mg/dl Calcium 8.9 (8.5-10.1) mg/dl Phosphorus 3.2 (2.5-4.9) mg/dl Magnesium 1.7 (1.7-2.4) mg/dl Medications Administered Current Inpatient Medications Acetaminophen (Acetaminophen 325 Mg Tab) 650 mg PO Q4H PRN PRN Reason: pain/fever Stop: 11/06/21 01:20 Last Admin: 10/11/21 09:50 Dose: 650 mg Amantadine HCl (Amantadine Hcl 100 Mg Capsule) 100 mg PO BID [facility] Stop: 11/06/21 08:59 Last Admin: 10/11/21 09:50 Dose: 100 mg Baclofen (Baclofen 20 Mg Tab) 20 mg PO TID [facility] Stop: 11/06/21 08:59 Last Admin: 10/11/21 14:08 Dose: 20 mg Bisacodyl (Bisacodyl 10 Mg Supp) 10 mg [place] DAILY PRN PRN Reason: Constipation Stop: 11/07/21 14:30 Docusate Sodium (Docusate Sodium 100 Mg Cap) 100 mg PO BID [facility] Stop: 11/07/21 20:59 Last Admin: 10/11/21 09:50 Dose: Not Given Folic Acid (Folic Acid 1 Mg Tab) 1 mg PO DAILY [facility] Stop: 11/06/21 08:59 Last Admin: 10/11/21 09:50 Dose: 1 mg Gabapentin (Gabapentin 300 Mg Cap) 300 mg PO TID [facility] Stop: 11/06/21 08:59 Last Admin: 10/11/21 14:08 Dose: 300 mg Ceftriaxone Sodium 2,000 mg/ (Dextrose) 70 mls @ 140 mls/hr IV DAILY@1400 [facility]; Protocol Stop: 10/14/21 13:59 Last Infusion: 10/11/21 16:20 Dose: Infused Ketorolac Tromethamine (Ketorolac 30 Mg/Ml Vial) 30 mg IV Q6H PRN PRN Reason: pain Last Admin: 10/09/21 05:31 Dose: 30 mg Morphine Sulfate (Morphine Sulfate 2 Mg/Ml Carp) 2 mg IV PRE-TREAT PRN PRN Reason: Pain Stop: 10/25/21 08:55 Naloxone HCl (Naloxone Hcl 0.4 Mg/1 Ml Vial/Carp) 0.1 mg IV Q5M PRN PRN Reason: Oversedation/Resp Depression Stop: 11/07/21 14:30 Ondansetron HCl (Ondansetron Inj 2 Mg/Ml 2 Ml Vial) 4 mg IV Q6H PRN PRN Reason: Nausea Stop: 11/06/21 01:20 Oxycodone HCl (Oxycodone Hcl Ir 5 Mg Tab (Immediate Release)) 5 - 10 mg PO Q4H PRN PRN Reason: Pain or Pre PT Stop: 10/22/21 14:30 Polyethylene Glycol (Polyethylene (Miralax) 17 Gm Pack) 17 gm PO DAILY PRN PRN Reason: Constipation Stop: 11/06/21 01:20 Risperidone (Risperidone 0.5 Mg Tablet) 0.[address] [facility] Stop: 11/06/21 20:59 Last Admin: 10/10/21 20:00 Dose: 0.5 mg Sennosides (Senna 8.6 Mg Tab) 17.2 mg PO HS [facility] Stop: 11/07/21 20:59 Last Admin: 10/10/21 19:59 Dose: Not Given Tramadol HCl (Tramadol Hcl 50 Mg Tablet) 50 - 100 mg PO Q4H PRN PRN Reason: Pain & Pre PT Stop: 11/07/21 14:30 Trazodone HCl (Trazodone Hcl 50 Mg Tab) [address] [facility] Stop: 11/06/21 20:59 Last Admin: 10/10/21 20:00 Dose: 150 mg
[2021-10-11] MEDS: POTASSIUM CHLORIDE PWD 20 MEQ PACK PO SCH (19:41)
[2021-10-11] MEDS: SENNA 8.6 MG TAB PO SCH (21:03)
[2021-10-11] MEDS: risperiDONE 0.5 MG TABLET PO SCH (21:03)
[2021-10-11] MEDS: traZODone HCL 50 MG TAB PO SCH (21:03)
[2021-10-12] MEDS: DOCUSATE SODIUM 100 MG CAP PO SCH ×2 (08:08→22:01)
[2021-10-12] MEDS: POTASSIUM CHLORIDE PWD 20 MEQ PACK PO SCH (08:08)
[2021-10-12] MEDS: BACLOFEN 20 MG TAB PO SCH ×3 (08:14→22:11)
[2021-10-12] MEDS: GABAPENTIN 300 MG CAP PO SCH ×3 (08:14→21:58)
[2021-10-12] MEDS: AMANTADINE HCL 100 MG CAPSULE PO SCH ×2 (08:14→21:59)
[2021-10-12] MEDS: FOLIC ACID 1 MG TAB PO SCH (08:14)
[2021-10-12 09:50] LABS: Hematocrit (blood only) 37.1 % (34.1-44.9); Hemoglobin 12.5 g/dl (12.0-16.0); Mean Corpuscular Hemoglobin 31.7 pg (25.0-34.0); Mean Corpuscular Hgb Conc 33.7 g/dL (32.0-36.0); Mean Corpuscular Volume 94.2 fL (80.0-100.0); Mean Platelet Volume 10.8 fL (9.4-12.3); Platelet Count 236 K/uL (130-400); RDW Coefficient of Variation 14.2 % (11.5-14.5); RDW Standard Deviation 48.7 fL (36.4-46.3); Red Blood Count 3.94 M/uL (3.93-5.22); White Blood Count 8.16 K/ul (4.8-10.8)
[2021-10-12] MEDS: ACETAMINOPHEN 325 MG TAB PO PRN ×2 (10:04→22:55)
[2021-10-12 10:19] LABS: BUN Creatinine Ratio 19.8 (10-20); Calcium 9.4 mg/dl (8.5-10.1); Est GFR (African American) 80.6 ml/min; Est GFR (Non-African American) 69.5 ml/min; Magnesium 1.7 mg/dl (1.7-2.4); Potassium 3.8 mmol/L (3.5-5.1)
[2021-10-12] MEDS: metroNIDAZOLE 500 MG/100 ML BAG IV SCH ×2 (11:02→18:29)
[2021-10-12] MEDS ORDERED: MAGNESIUM SULFATE / D5W 1 GM/100 ML BAG IV ONE (14:15)
[2021-10-12] MEDS: cefTRIAXone SODIUM 2,000 MG in DEXTROSE 5% 50 ML IV SCH (14:44)
[2021-10-12] MEDS: risperiDONE 0.5 MG TABLET PO SCH (21:58)
[2021-10-12] MEDS: traZODone HCL 50 MG TAB PO SCH (21:58)
[2021-10-12] MEDS: SENNA 8.6 MG TAB PO SCH (22:02)
[2021-10-13] MEDS: metroNIDAZOLE 500 MG/100 ML BAG IV SCH ×3 (03:07→18:11)
--- NOTE | 2021-10-13 07:46 | Hospitalist Progress Note ---
Date of Service October 12, 2021 Assessment & Plan (1) Status post amputation of left foot through metatarsal bone: Plan: Infected Left foot status post transmetatarsal amputation Foot xray showed postsurgical change from forefoot amputation. There is no def initive radiographic evidence of osteomyelitis.Soft tissue edema is present throughout the forefoot stump with tiny foci of soft tissue gas Orthopedics consulted s/p left foot I&D with debridement, irrigation and wound vac placement of the infected left foot transmetatarsal amputation performed by Dr. Bartholomew (10/08/21) Wound cx (10/06/21) positive for staph species (MSSA) and corynebacterium Wound cx from the procedure (10/08) grew staph species (MSSA) and Finegoldia magna IV vancomycin and Zosyn were discontinued Changed abx to Rocephin IV , per above cultx, add Flagyl (10/12) Continue wound vac as per ortho / wound care nurse Wound care on board ID consult for antibiotic duration pending PT/OT eval History of rheumatoid arthritis. Continue to hold methotrexate for now. History of depression continue trazodone. DVT prophylaxis: SCD due to recent orthopedic procedure Code status Full code Disposition PT/OT eval Follow up with Dr Bartholomew in 10-14 days at [facility] Orthopedics Admission and Anticipated Discharge Date Admission Date: October 06, 2021 Subjective Patient was seen and evaluated for post op follow-up of left foot status post first metatarsal amputationd/t infection Lying in bed in no acute distress Pt said that pain tolerable that comes on/off Denies any fever, chills, chest pain, palpitation, dizziness, shortness of breath. currently on Rocephin IV, added Flagyl wound vac applied Review of Systems Review of Systems: All systems reviewed & are unremarkable except as noted in Subjective Physical Exam Physical Exam: General- No acute distress Head- at raumatic Eyes- PER RL, EOMI, ENT- kendal pharynx clear Neck - supple, no JVD L ungs- clear to aus cultation Heart- r egular rhythm; no murmur Abdomen- no rmal bowel sounds, soft, nontender E xtremities- no ca lf tenderness, +Le ft foot TMA site i s erythematous, +w ound vac in place Neuro- alert, orie nted x 3; PERRL, E RIP; no facial pal sy; no dysarthria Skin- warm & dry Results & Data Results & Data ([facility]) Vital Signs (Past 12 Hours) Vital Signs Temp Pulse Pulse Resp BP Pulse Ox O2 Del Method 10/12/21 22:13 175/101 H 10/12/21 22:09 37.1 C 59 L 18 95 Room Air Laboratory Results 10/12/21 10/12/21 Range/Units 09:29 09:29 WBC 8.16 (4.8-10.8) K/ul RBC 3.94 (3.93-5.22) M/uL Hgb 12.5 (12.0-16.0) g/dl Hct 37.1 (34.1-44.9) % MCV 94.2 (80.0-100.0) fL MCH 31.7 (25.0-34.0) pg MCHC 33.7 (32.0-36.0) g/dL RDW Std Deviation 48.7 H (36.4-46.3) fL RDW Coeff of Jorge 14.2 (11.5-14.5) % Plt Count 236 (130-400) K/uL MPV 10.8 (9.4-12.3) fL Sodium 141 (136-145) mmol/L Potassium 3.8 (3.5-5.1) mmol/L Chloride 107 (98-107) mmol/L Carbon Dioxide 26 (21-32) mmol/L Anion Gap 8 (3-11) BUN 18 (6-23) mg/dl Creatinine 0.91 (0.6-1.2) mg/dl Est Cr Clr Drug Dosing 69.0 ml/min Est GFR ( Amer) 80.6 ml/min Est GFR (Non-Af Amer) 69.5 ml/min BUN/Creatinine Ratio 19.8 (10-20) Glucose 143 H (70-99(Fasting)) mg/dl Calcium 9.4 (8.5-10.1) mg/dl Magnesium 1.7 (1.7-2.4) mg/dl Medications Administered Current Inpatient Medications Acetaminophen (Acetaminophen 325 Mg Tab) 650 mg PO Q4H PRN PRN Reason: pain/fever Stop: 11/06/21 01:20 Last Admin: 10/12/21 22:55 Dose: 650 mg Amantadine HCl (Amantadine Hcl 100 Mg Capsule) 100 mg PO BID [facility] Stop: 11/06/21 08:59 Last Admin: 10/12/21 21:59 Dose: 100 mg Baclofen (Baclofen 20 Mg Tab) 20 mg PO TID [facility] Stop: 11/06/21 08:59 Last Admin: 10/12/21 22:11 Dose: 20 mg Bisacodyl (Bisacodyl 10 Mg Supp) 10 mg [place] DAILY PRN PRN Reason: Constipation Stop: 11/07/21 14:30 Docusate Sodium (Docusate Sodium 100 Mg Cap) 100 mg PO BID [facility] Stop: 11/07/21 20:59 Last Admin: 10/12/21 22:01 Dose: Not Given Folic Acid (Folic Acid 1 Mg Tab) 1 mg PO DAILY [facility] Stop: 11/06/21 08:59 Last Admin: 10/12/21 08:14 Dose: 1 mg Gabapentin (Gabapentin 300 Mg Cap) 300 mg PO TID [facility] Stop: 11/06/21 08:59 Last Admin: 10/12/21 21:58 Dose: 300 mg Ceftriaxone Sodium 2,000 mg/ (Dextrose) 70 mls @ 140 mls/hr IV DAILY@1400 [facility]; Protocol Stop: 10/14/21 13:59 Last Infusion: 10/12/21 15:14 Dose: Infused Metronidazole (Flagyl) 500 mg in 100 mls @ 100 mls/hr IV Q8H [facility]; Protocol Stop: 10/19/21 10:59 Last Infusion: 10/13/21 04:20 Dose: Infused Ketorolac Tromethamine (Ketorolac 30 Mg/Ml Vial) 30 mg IV Q6H PRN PRN Reason: pain Last Admin: 10/09/21 05:31 Dose: 30 mg Morphine Sulfate (Morphine Sulfate 2 Mg/Ml Carp) 2 mg IV PRE-TREAT PRN PRN Reason: Pain Stop: 10/25/21 08:55 Naloxone HCl (Naloxone Hcl 0.4 Mg/1 Ml Vial/Carp) 0.1 mg IV Q5M PRN PRN Reason: Oversedation/Resp Depression Stop: 11/07/21 14:30 Ondansetron HCl (Ondansetron Inj 2 Mg/Ml 2 Ml Vial) 4 mg IV Q6H PRN PRN Reason: Nausea Stop: 11/06/21 01:20 Oxycodone HCl (Oxycodone Hcl Ir 5 Mg Tab (Immediate Release)) 5 - 10 mg PO Q4H PRN PRN Reason: Pain or Pre PT Stop: 10/22/21 14:30 Polyethylene Glycol (Polyethylene (Miralax) 17 Gm Pack) 17 gm PO DAILY PRN PRN Reason: Constipation Stop: 11/06/21 01:20 Risperidone (Risperidone 0.5 Mg Tablet) 0.5 mg PO HS [facility] Stop: 11/06/21 20:59 Last Admin: 10/12/21 21:58 Dose: 0.5 mg Sennosides (Senna 8.6 Mg Tab) 17.2 mg PO HS [facility] Stop: 11/07/21 20:59 Last Admin: 10/12/21 22:02 Dose: Not Given Tramadol HCl (Tramadol Hcl 50 Mg Tablet) 50 - 100 mg PO Q4H PRN PRN Reason: Pain & Pre PT Stop: 11/07/21 14:30 Trazodone HCl (Trazodone Hcl 50 Mg Tab) 150 mg PO HS [facility] Stop: 11/06/21 20:59 Last Admin: 10/12/21 21:58 Dose: 150 mg
[2021-10-13] MEDS: ACETAMINOPHEN 325 MG TAB PO PRN (08:00)
[2021-10-13] MEDS: GABAPENTIN 300 MG CAP PO SCH ×3 (08:00→20:45)
[2021-10-13] MEDS: BACLOFEN 20 MG TAB PO SCH ×3 (08:00→20:44)
[2021-10-13] MEDS: FOLIC ACID 1 MG TAB PO SCH (08:01)
[2021-10-13] MEDS: DOCUSATE SODIUM 100 MG CAP PO SCH ×2 (08:01→20:44)
[2021-10-13] MEDS: AMANTADINE HCL 100 MG CAPSULE PO SCH ×2 (08:01→20:45)
[2021-10-13] MEDS: MoRPHine SULFATE 2 MG/ML CARP IV PRN (09:15)
[2021-10-13 09:28] LABS: Hematocrit (blood only) 38.3 % (34.1-44.9); Hemoglobin 12.7 g/dl (12.0-16.0); Mean Corpuscular Hemoglobin 31.4 pg (25.0-34.0); Mean Corpuscular Hgb Conc 33.2 g/dL (32.0-36.0); Mean Corpuscular Volume 94.8 fL (80.0-100.0); Mean Platelet Volume 10.7 fL (9.4-12.3); Platelet Count 257 K/uL (130-400); RDW Coefficient of Variation 14.3 % (11.5-14.5); RDW Standard Deviation 48.6 fL (36.4-46.3); Red Blood Count 4.04 M/uL (3.93-5.22); White Blood Count 9.13 K/ul (4.8-10.8)
[2021-10-13 09:52] LABS: BUN Creatinine Ratio 23.2 (10-20); Calcium 9.1 mg/dl (8.5-10.1); Creatinine Clr Calc Pharmacy 63.4 ml/min; Est GFR (African American) 72.8 ml/min; Est GFR (Non-African American) 62.8 ml/min; Potassium 3.6 mmol/L (3.5-5.1)
[2021-10-13] MEDS: KETOROLAC 30 MG/ML VIAL IV PRN ×2 (10:12→21:48)
--- NOTE | 2021-10-13 11:03 | Hospitalist Progress Note ---
Date of Service October 13, 2021 Assessment & Plan (1) Status post amputation of left foot through metatarsal bone: Plan: Infected Left foot status post transmetatarsal amputation Foot xray showed postsurgical change from forefoot amputation. There is no def initive radiographic evidence of osteomyelitis.Soft tissue edema is present throughout the forefoot stump with tiny foci of soft tissue gas Orthopedics consulted s/p left foot I&D with debridement, irrigation and wound vac placement of the infected left foot transmetatarsal amputation performed by Dr. 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 RA on methotrexate Recommendation: With MSSA in the OR cultures, would assume her infection also involved the residual metatarsal bone and should be treated accordingly. Treat with ceftriaxone 2 g IV daily along with metronidazole 500 mg p.o. 3 times daily. Would extend this for 4 weeks postop, target end date of November 05, 2021. At that point, if there is still concerned about infection or delayed healing, she could probably just be transition to oral therapy with Augmentin 875 mg p.o. twice daily for 1-2 more weeks. While on antibiotics, she should have weekly CBC and CMP. She is welcome to follow-up in the ID clinic in the next 4 to 6 weeks to evaluate the surgical site. History of rheumatoid arthritis. Continue to hold methotrexate for now. History of depression continue trazodone. DVT prophylaxis: SCD due to recent orthopedic procedure Code status Full code Disposition PT/OT eval Follow up with Dr Bartholomew in 10-14 days at [facility] Admission and Anticipated Discharge Date Admission Date: October 06, 2021 Subjective Patient was seen and evaluated for post op follow-up of left foot s/p first metatarsal amputationd/t infection Lying in bed in no acute distress Pt said that pain tolerable that comes on/off She is usually comfortable, but does have significant pain with wound VAC changes Denies any fever, chills, chest pain, palpitation, dizziness, shortness of breath. currently on Rocephin IV, added Flagyl wound vac applied ID consult obtained today Review of Systems Review of Systems: All systems reviewed & are unremarkable except as noted in Subjective Physical Exam Physical Exam: General- No acute distress Head- at raumatic Eyes- PER RL, EOMI, ENT- kendal pharynx clear Neck - supple, no JVD L ungs- clear to aus cultation Heart- r egular rhythm; no murmur Abdomen- no rmal bowel sounds, soft, nontender E xtremities- no ca lf tenderness, +Le ft foot TMA site i s erythematous, +w ound vac in place Neuro- alert, orie nted x 3; PERRL, E RIP; no facial pal sy; no dysarthria Skin- warm & dry Results & Data Results & Data ([facility]) Vital Signs (Past 12 Hours) Vital Signs Temp Pulse Resp BP Pulse Ox O2 Del Method 10/13/21 08:49 Room Air 10/13/21 07:40 36.6 C 55 L 18 136/84 91 Room Air 10/13/21 03:45 57 L 138/80 Laboratory Results 10/13/21 10/13/21 Range/Units 09:06 09:06 WBC 9.13 (4.8-10.8) K/ul RBC 4.04 (3.93-5.22) M/uL Hgb 12.7 (12.0-16.0) g/dl Hct 38.3 (34.1-44.9) % MCV 94.8 (80.0-100.0) fL MCH 31.4 (25.0-34.0) pg MCHC 33.2 (32.0-36.0) g/dL RDW Std Deviation 48.6 H (36.4-46.3) fL RDW Coeff of Jorge 14.3 (11.5-14.5) % Plt Count 257 (130-400) K/uL MPV 10.7 (9.4-12.3) fL Sodium 141 (136-145) mmol/L Potassium 3.6 (3.5-5.1) mmol/L Chloride 109 H (98-107) mmol/L Carbon Dioxide 23 (21-32) mmol/L Anion Gap 9 (3-11) BUN 23 (6-23) mg/dl Creatinine 0.99 (0.6-1.2) mg/dl Est Cr Clr Drug Dosing 63.4 ml/min Est GFR ( Amer) 72.8 ml/min Est GFR (Non-Af Amer) 62.8 ml/min BUN/Creatinine Ratio 23.2 H (10-20) Glucose 137 H (70-99(Fasting)) mg/dl Calcium 9.1 (8.5-10.1) mg/dl Medications Administered Current Inpatient Medications Acetaminophen (Acetaminophen 325 Mg Tab) 650 mg PO Q4H PRN PRN Reason: pain/fever Stop: 11/06/21 01:20 Last Admin: 10/13/21 08:00 Dose: 650 mg Amantadine HCl (Amantadine Hcl 100 Mg Capsule) 100 mg PO BID [facility] Stop: 11/06/21 08:59 Last Admin: 10/13/21 08:01 Dose: 100 mg Baclofen (Baclofen 20 Mg Tab) 20 mg PO TID [facility] Stop: 11/06/21 08:59 Last Admin: 10/13/21 08:00 Dose: 20 mg Bisacodyl (Bisacodyl 10 Mg Supp) 10 mg IN DAILY PRN PRN Reason: Constipation Stop: 11/07/21 14:30 Docusate Sodium (Docusate Sodium 100 Mg Cap) 100 mg PO BID [facility] Stop: 11/07/21 20:59 Last Admin: 10/13/21 08:01 Dose: Not Given Folic Acid (Folic Acid 1 Mg Tab) 1 mg PO DAILY [facility] Stop: 11/06/21 08:59 Last Admin: 10/13/21 08:01 Dose: 1 mg Gabapentin (Gabapentin 300 Mg Cap) 300 mg PO TID [facility] Stop: 11/06/21 08:59 Last Admin: 10/13/21 08:00 Dose: 300 mg Ceftriaxone Sodium 2,000 mg/ (Dextrose) 70 mls @ 140 mls/hr IV DAILY@1400 [facility]; Protocol Stop: 10/14/21 13:59 Last Infusion: 10/12/21 15:14 Dose: Infused Metronidazole (Flagyl) 500 mg in 100 mls @ 100 mls/hr IV Q8H [facility]; Protocol Stop: 10/19/21 10:59 Last Admin: 10/13/21 10:48 Dose: 100 mls/hr Ketorolac Tromethamine (Ketorolac 30 Mg/Ml Vial) 30 mg IV Q6H PRN PRN Reason: pain Last Admin: 10/13/21 10:12 Dose: 30 mg Morphine Sulfate (Morphine Sulfate 2 Mg/Ml Carp) 2 mg IV PRE-TREAT PRN PRN Reason: Pain Stop: 10/25/21 08:55 Last Admin: 10/13/21 09:15 Dose: 2 mg Naloxone HCl (Naloxone Hcl 0.4 Mg/1 Ml Vial/Carp) 0.1 mg IV Q5M PRN PRN Reason: Oversedation/Resp Depression Stop: 11/07/21 14:30 Ondansetron HCl (Ondansetron Inj 2 Mg/Ml 2 Ml Vial) 4 mg IV Q6H PRN PRN Reason: Nausea Stop: 11/06/21 01:20 Oxycodone HCl (Oxycodone Hcl Ir 5 Mg Tab (Immediate Release)) 5 - 10 mg PO Q4H PRN PRN Reason: Pain or Pre PT Stop: 10/22/21 14:30 Polyethylene Glycol (Polyethylene (Miralax) 17 Gm Pack) 17 gm PO DAILY PRN PRN Reason: Constipation Stop: 11/06/21 01:20 Risperidone (Risperidone 0.5 Mg Tablet) 0.5 mg PO HS [facility] Stop: 11/06/21 20:59 Last Admin: 10/12/21 21:58 Dose: 0.5 mg Sennosides (Senna 8.6 Mg Tab) 17.2 mg PO HS [facility] Stop: 11/07/21 20:59 Last Admin: 10/12/21 22:02 Dose: Not Given Tramadol HCl (Tramadol Hcl 50 Mg Tablet) 50 - 100 mg PO Q4H PRN PRN Reason: Pain & Pre PT Stop: 11/07/21 14:30 Trazodone HCl (Trazodone Hcl 50 Mg Tab) 150 mg PO HS [facility] Stop: 11/06/21 20:59 Last Admin: 10/12/21 21:58 Dose: 150 mg
[2021-10-13] MEDS: cefTRIAXone SODIUM 2,000 MG in DEXTROSE 5% 50 ML IV SCH (13:09)
--- NOTE | 2021-10-13 14:44 | Orthopedic Progress Note ---
Date of Service October 13, 2021 Assessment & Plan (1) Status post incision and drainage: Plan: POD 5 s/p left foot I&D with debridement, irrigation and wound vac placement Patient is doing well this morning. No issues with wound vac WBAT with walker PT/OT Diet - regular Elevate left foot DVT prophylaxis: per primary Pain control: per primary Continue Abx: recommendations as per ID consult, switched to ceftriaxone and metronidazole as recommended. Continue wound vac changes by wound care nurse, next change will be Monday 10/16. Follow up with Dr Bartholomew in 10-14 days at [facility]. Call [phone] with any questions or concerns. Admission and Anticipated Discharge Date Admission Date: October 06, 2021 Subjective patient lying in bed, no complaints of pain in left foot. Wound vac changed by wound care nurse this morning. Physical Exam Musculoskeletal: left foot dressing/wound vac in place, no edema, minimal visible erythema. Elevated on pillows. Wound vac functioning, distal sensation normal. Results & Data ([facility]) Vital Signs (Past 12 Hours) Vital Signs Temp Pulse Resp BP Pulse Ox O2 Del Method 10/13/21 08:49 Room Air 10/13/21 07:40 36.6 C 55 L 18 136/84 91 Room Air 10/13/21 03:45 57 L 138/80
[2021-10-13] MEDS: SENNA 8.6 MG TAB PO SCH (20:43)
[2021-10-13] MEDS: traZODone HCL 50 MG TAB PO SCH (20:44)
[2021-10-13] MEDS: risperiDONE 0.5 MG TABLET PO SCH (20:44)
[2021-10-14] MEDS: metroNIDAZOLE 500 MG/100 ML BAG IV SCH ×3 (03:17→18:10)
[2021-10-14] MEDS: DOCUSATE SODIUM 100 MG CAP PO SCH ×2 (08:20→20:16)
[2021-10-14] MEDS: GABAPENTIN 300 MG CAP PO SCH ×3 (08:34→20:18)
[2021-10-14] MEDS: BACLOFEN 20 MG TAB PO SCH ×3 (08:34→20:17)
[2021-10-14] MEDS: AMANTADINE HCL 100 MG CAPSULE PO SCH ×2 (08:34→20:18)
[2021-10-14] MEDS: FOLIC ACID 1 MG TAB PO SCH (08:34)
--- NOTE | 2021-10-14 10:01 | Hospitalist Progress Note ---
Date of Service October 14, 2021 Assessment & Plan (1) Status post amputation of left foot through metatarsal bone: Plan: Infected Left foot status post transmetatarsal amputation Foot xray showed postsurgical change from forefoot amputation. There is no def initive radiographic evidence of osteomyelitis.Soft tissue edema is present throughout the forefoot stump with tiny foci of soft tissue gas Orthopedics consulted s/p left foot I&D with debridement, irrigation and wound vac placement of the infected left foot transmetatarsal amputation performed by Dr. Bartholomew (10/08/21) Wound cx (10/06/21) positive for staph species (MSSA) and corynebacterium Wound cx from the procedure (10/08) grew staph species (MSSA) and Finegoldia magna IV vancomycin and Zosyn were discontinued Changed abx to Rocephin IV , per above cultx, added Flagyl (10/12) Continue wound vac as per ortho / wound care nurse Wound care on board - next wound vac change on Saturday PT/OT eval ID consulted Impression: 1.Left foot osteomyelitis and surgical site infection after TMA 2. RA on methotrexate Recommendation: With MSSA in the OR cultures, would assume her infection also involved the residual metatarsal bone and should be treated accordingly. Treat with ceftriaxone 2 g IV daily along with metronidazole 500 mg p.o. 3 times daily. Would extend this for 4 weeks postop, target end date of November 05, 2021. At that point, if there is still concerned about infection or delayed healing, she could probably just be transition to oral therapy with Augmentin 875 mg p.o. twice daily for 1-2 more weeks. While on antibiotics, she should have weekly CBC and CMP. She is welcome to follow-up in the ID clinic in the next 4 to 6 weeks to evaluate the surgical site. History of rheumatoid arthritis. Continue to hold methotrexate for now. History of depression continue trazodone. DVT prophylaxis: SCD due to recent orthopedic procedure Code status Full code Disposition PT/OT eval Follow up with Dr Bartholomew in 10-14 days at [facility]. Call [phone] with any questions or concerns. Admission and Anticipated Discharge Date Admission Date: October 06, 2021 Subjective Patient was seen and evaluated for post op follow-up of left foot s/p first metatarsal amputationd/t infection Lying in bed in no acute distress , watching TV Pt is quite comfortable, but does have significant pain with wound VAC changes Denies any fever, chills, chest pain, palpitation, dizziness, shortness of breath. currently on Rocephin IV, and Flagyl wound vac applied ID consult obtained Review of Systems Review of Systems: All systems reviewed & are unremarkable except as noted in Subjective Physical Exam Physical Exam: General- No acute distress Head- at raumatic Eyes- PER RL, EOMI, ENT- kendal pharynx clear Neck - supple, no JVD L ungs- clear to aus cultation Heart- r egular rhythm; no murmur Abdomen- no rmal bowel sounds, soft, nontender E xtremities- no ca lf tenderness, +Le ft foot TMA site i s erythematous, +w ound vac in place Neuro- alert, orie nted x 3; PERRL, E RIP; no facial pal sy; no dysarthria Skin- warm & dry Results & Data Results & Data ([facility]) Vital Signs (Past 12 Hours) Vital Signs Temp Pulse Pulse Resp BP Pulse Ox O2 Del Method 10/14/21 07:30 Room Air 10/14/21 08:25 36.4 C L 51 L 16 142/74 H 94 Room Air 10/13/21 22:15 36.8 C 58 L 18 133/77 94 Room Air Medications Administered Current Inpatient Medications Acetaminophen (Acetaminophen 325 Mg Tab) 650 mg PO Q4H PRN PRN Reason: pain/fever Stop: 11/06/21 01:20 Last Admin: 10/13/21 08:00 Dose: 650 mg Amantadine HCl (Amantadine Hcl 100 Mg Capsule) 100 mg PO BID [facility] Stop: 11/06/21 08:59 Last Admin: 10/14/21 08:34 Dose: 100 mg Baclofen (Baclofen 20 Mg Tab) 20 mg PO TID [facility] Stop: 11/06/21 08:59 Last Admin: 10/14/21 08:34 Dose: 20 mg Bisacodyl (Bisacodyl 10 Mg Supp) 10 mg [place] DAILY PRN PRN Reason: Constipation Stop: 11/07/21 14:30 Docusate Sodium (Docusate Sodium 100 Mg Cap) 100 mg PO BID [facility] Stop: 11/07/21 20:59 Last Admin: 10/14/21 08:20 Dose: Not Given Folic Acid (Folic Acid 1 Mg Tab) 1 mg PO DAILY [facility] Stop: 11/06/21 08:59 Last Admin: 10/14/21 08:34 Dose: 1 mg Gabapentin (Gabapentin 300 Mg Cap) 300 mg PO TID [facility] Stop: 11/06/21 08:59 Last Admin: 10/14/21 08:34 Dose: 300 mg Ceftriaxone Sodium 2,000 mg/ (Dextrose) 70 mls @ 140 mls/hr IV DAILY@1400 [facility]; Protocol Stop: 10/14/21 13:59 Last Infusion: 10/13/21 14:01 Dose: Infused Metronidazole (Flagyl) 500 mg in 100 mls @ 100 mls/hr IV Q8H [facility]; Protocol Stop: 10/19/21 10:59 Last Infusion: 10/14/21 04:20 Dose: Infused Morphine Sulfate (Morphine Sulfate 2 Mg/Ml Carp) 2 mg IV PRE-TREAT PRN PRN Reason: Pain Stop: 10/25/21 08:55 Last Admin: 10/13/21 09:15 Dose: 2 mg Naloxone HCl (Naloxone Hcl 0.4 Mg/1 Ml Vial/Carp) 0.1 mg IV Q5M PRN PRN Reason: Oversedation/Resp Depression Stop: 11/07/21 14:30 Ondansetron HCl (Ondansetron Inj 2 Mg/Ml 2 Ml Vial) 4 mg IV Q6H PRN PRN Reason: Nausea Stop: 11/06/21 01:20 Oxycodone HCl (Oxycodone Hcl Ir 5 Mg Tab (Immediate Release)) 5 - 10 mg PO Q4H PRN PRN Reason: Pain or Pre PT Stop: 10/22/21 14:30 Polyethylene Glycol (Polyethylene (Miralax) 17 Gm Pack) 17 gm PO DAILY PRN PRN Reason: Constipation Stop: 11/06/21 01:20 Risperidone (Risperidone 0.5 Mg Tablet) 0.[address] [facility] Stop: 11/06/21 20:59 Last Admin: 10/13/21 20:44 Dose: 0.5 mg Sennosides (Senna 8.6 Mg Tab) 17.2 mg PO HS [facility] Stop: 11/07/21 20:59 Last Admin: 10/13/21 20:43 Dose: Not Given Tramadol HCl (Tramadol Hcl 50 Mg Tablet) 50 - 100 mg PO Q4H PRN PRN Reason: Pain & Pre PT Stop: 11/07/21 14:30 Trazodone HCl (Trazodone Hcl 50 Mg Tab) 150 mg PO HS [facility] Stop: 11/06/21 20:59 Last Admin: 10/13/21 20:44 Dose: 150 mg
[2021-10-14] MEDS: SENNA 8.6 MG TAB PO SCH (20:16)
[2021-10-14] MEDS: risperiDONE 0.5 MG TABLET PO SCH (20:17)
[2021-10-14] MEDS: traZODone HCL 50 MG TAB PO SCH (20:17)
[2021-10-14] MEDS: oxyCODONE HCL IR 5 MG TAB (IMMEDIATE RELEASE) PO PRN (22:39)
[2021-10-15] MEDS: metroNIDAZOLE 500 MG/100 ML BAG IV SCH ×3 (02:17→18:13)
[2021-10-15 06:21] LABS: Hematocrit (blood only) 36.3 % (34.1-44.9); Hemoglobin 11.8 g/dl (12.0-16.0); Mean Corpuscular Hemoglobin 31.5 pg (25.0-34.0); Mean Corpuscular Hgb Conc 32.5 g/dL (32.0-36.0); Mean Corpuscular Volume 96.8 fL (80.0-100.0); Mean Platelet Volume 10.6 fL (9.4-12.3); Platelet Count 247 K/uL (130-400); RDW Coefficient of Variation 14.3 % (11.5-14.5); RDW Standard Deviation 50.5 fL (36.4-46.3); Red Blood Count 3.75 M/uL (3.93-5.22); White Blood Count 7.51 K/ul (4.8-10.8)
[2021-10-15 06:43] LABS: BUN Creatinine Ratio 32.6 (10-20); Calcium 8.5 mg/dl (8.5-10.1); Est GFR (African American) 86.3 ml/min; Est GFR (Non-African American) 74.5 ml/min; Phosphorus 3.7 mg/dl (2.5-4.9); Potassium 4.2 mmol/L (3.5-5.1)
[2021-10-15] MEDS: DOCUSATE SODIUM 100 MG CAP PO SCH ×2 (08:18→20:39)
[2021-10-15] MEDS: BACLOFEN 20 MG TAB PO SCH ×3 (08:18→20:37)
[2021-10-15] MEDS: FOLIC ACID 1 MG TAB PO SCH (08:18)
[2021-10-15] MEDS: GABAPENTIN 300 MG CAP PO SCH ×3 (08:18→20:37)
[2021-10-15] MEDS: AMANTADINE HCL 100 MG CAPSULE PO SCH ×2 (08:18→20:37)
[2021-10-15] MEDS: traZODone HCL 50 MG TAB PO SCH (20:37)
[2021-10-15] MEDS: risperiDONE 0.5 MG TABLET PO SCH (20:37)
[2021-10-15] MEDS: SENNA 8.6 MG TAB PO SCH (20:39)
[2021-10-16] MEDS: metroNIDAZOLE 500 MG/100 ML BAG IV SCH ×2 (03:40→10:53)
--- NOTE | 2021-10-16 07:56 | Hospitalist Progress Note ---
Date of Service October 15, 2021 Assessment & Plan (1) Status post amputation of left foot through metatarsal bone: Plan: Infected Left foot status post transmetatarsal amputation Foot xray showed postsurgical change from forefoot amputation. There is no def initive radiographic evidence of osteomyelitis.Soft tissue edema is present throughout the forefoot stump with tiny foci of soft tissue gas Orthopedics consulted s/p left foot I&D with debridement, irrigation and wound vac placement of the infected left foot transmetatarsal amputation performed by Dr. Bartholomew (10/08/21) Wound cx (10/06/21) positive for staph species (MSSA) and corynebacterium Wound cx from the procedure (10/08) grew staph species (MSSA) and Finegoldia magna IV vancomycin and Zosyn were discontinued Changed abx to Rocephin IV , per above cultx, added Flagyl (10/12) Continue wound vac as per ortho / wound care nurse Wound care on board - next wound vac change on Saturday PT/OT eval ID consulted Impression: 1.Left foot osteomyelitis and surgical site infection after TMA 2. RA on methotrexate Recommendation: With MSSA in the OR cultures, would assume her infection also involved the residual metatarsal bone and should be treated accordingly. Treat with ceftriaxone 2 g IV daily along with metronidazole 500 mg p.o. 3 times daily. Would extend this for 4 weeks postop, target end date of November 05, 2021. At that point, if there is still concerned about infection or delayed healing, she could probably just be transition to oral therapy with Augmentin 875 mg p.o. twice daily for 1-2 more weeks. While on antibiotics, she should have weekly CBC and CMP. She is welcome to follow-up in the ID clinic in the next 4 to 6 weeks to evaluate the surgical site. History of rheumatoid arthritis. Continue to hold methotrexate for now. History of depression continue trazodone. DVT prophylaxis: SCD due to recent orthopedic procedure Code status Full code Disposition PT/OT eval Follow up with Dr Bartholomew in 10-14 days at [facility]. Call [phone] with any questions or concerns. Admission and Anticipated Discharge Date Admission Date: October 06, 2021 Subjective Patient was seen and evaluated for post op follow-up of left foot s/p first metatarsal amputationd/t infection Lying in bed in no acute distress , watching TV Pt is quite comfortable, but does have significant pain with wound VAC changes Denies any fever, chills, chest pain, palpitation, dizziness, shortness of breath. currently on Rocephin IV, and Flagyl wound vac applied ID consult obtained Review of Systems Review of Systems: All systems reviewed & are unremarkable except as noted in Subjective Physical Exam Physical Exam: General- No acute distress Head- at raumatic Eyes- PER RL, EOMI, ENT- kendal pharynx clear Neck - supple, no JVD L ungs- clear to aus cultation Heart- r egular rhythm; no murmur Abdomen- no rmal bowel sounds, soft, nontender E xtremities- no ca lf tenderness, +Le ft foot TMA site i s erythematous, +w ound vac in place Neuro- alert, orie nted x 3; PERRL, E RIP; no facial pal sy; no dysarthria Skin- warm & dry Results & Data Results & Data ([facility]) Vital Signs (Past 12 Hours) Vital Signs Temp Pulse Pulse Resp BP BP Pulse Ox 10/15/21 22:11 37.0 C 53 L 16 168/79 H 93 O2 Del Method 10/15/21 22:11 Room Air
--- NOTE | 2021-10-16 07:58 | Hospitalist Progress Note ---
Date of Service October 16, 2021 Assessment & Plan (1) Status post amputation of left foot through metatarsal bone: Plan: Infected Left foot status post transmetatarsal amputation Foot xray showed postsurgical change from forefoot amputation. There is no def initive radiographic evidence of osteomyelitis.Soft tissue edema is present throughout the forefoot stump with tiny foci of soft tissue gas Orthopedics consulted s/p left foot I&D with debridement, irrigation and wound vac placement of the infected left foot transmetatarsal amputation performed by Dr. Bartholomew (10/08/21) Wound cx (10/06/21) positive for staph species (MSSA) and corynebacterium Wound cx from the procedure (10/08) grew staph species (MSSA) and Finegoldia magna IV vancomycin and Zosyn were discontinued Changed abx to Rocephin IV , per above cultx, added Flagyl (10/12) Continue wound vac as per ortho / wound care nurse Wound care on board - next wound vac change today (10/16) PT/OT eval ID consulted Impression: 1.Left foot osteomyelitis and surgical site infection after TMA 2. RA on methotrexate Recommendation: With MSSA in the OR cultures, would assume her infection also involved the residual metatarsal bone and should be treated accordingly. Treat with ceftriaxone 2 g IV daily along with metronidazole 500 mg p.o. 3 times daily. Would extend this for 4 weeks postop, target end date of November 05, 2021. At that point, if there is still concerned about infection or delayed healing, she could probably just be transition to oral therapy with Augmentin 875 mg p.o. twice daily for 1-2 more weeks. While on antibiotics, she should have weekly CBC and CMP. She is welcome to follow-up in the ID clinic in the next 4 to 6 weeks to evaluate the surgical site. History of rheumatoid arthritis. Continue to hold methotrexate for now. History of depression continue trazodone. DVT prophylaxis: SCD due to recent orthopedic procedure (discussed w/ ortho) Code status Full code Disposition PT/OT eval Follow up with Dr Bartholomew in 10-14 days at [facility]. Call [phone] with any questions or concerns. Admission and Anticipated Discharge Date Admission Date: October 06, 2021 Subjective Patient was seen and evaluated for post op follow-up of left foot s/p first metatarsal amputationd/t infection Lying in bed in no acute distress , watching TV Pt is quite comfortable, but does have significant pain with wound VAC changes Denies any fever, chills, chest pain, palpitation, dizziness, shortness of breath. currently on Rocephin IV, and Flagyl wound vac applied ID consult obtained Review of Systems Review of Systems: All systems reviewed & are unremarkable except as noted in Subjective Physical Exam Physical Exam: General- No acute distress Head- at raumatic Eyes- PER RL, EOMI, ENT- kendal pharynx clear Neck - supple, no JVD L ungs- clear to aus cultation Heart- r egular rhythm; no murmur Abdomen- no rmal bowel sounds, soft, nontender E xtremities- no ca lf tenderness, +Le ft foot TMA site i s slightly erythem atous (improved), +wound vac in plac e Neuro- alert, or iented x 3; PERRL, EOMI; no facial p alsy; no dysarthri a Skin- warm & dry Results & Data Results & Data ([facility]) Vital Signs (Past 12 Hours) Vital Signs Temp Pulse Pulse Resp BP BP Pulse Ox 10/16/21 07:50 36.7 C 48 L 16 144/82 H 96 10/15/21 22:11 37.0 C 53 L 16 168/79 H 93 O2 Del Method 10/16/21 07:50 Room Air 10/15/21 22:11 Room Air Medications Administered Current Inpatient Medications Acetaminophen (Acetaminophen 325 Mg Tab) 650 mg PO Q4H PRN PRN Reason: pain/fever Stop: 11/06/21 01:20 Last Admin: 10/13/21 08:00 Dose: 650 mg Amantadine HCl (Amantadine Hcl 100 Mg Capsule) 100 mg PO BID [facility] Stop: 11/06/21 08:59 Last Admin: 10/15/21 20:37 Dose: 100 mg Baclofen (Baclofen 20 Mg Tab) 20 mg PO TID [facility] Stop: 11/06/21 08:59 Last Admin: 10/15/21 20:37 Dose: 20 mg Bisacodyl (Bisacodyl 10 Mg Supp) 10 mg [place] DAILY PRN PRN Reason: Constipation Stop: 11/07/21 14:30 Docusate Sodium (Docusate Sodium 100 Mg Cap) 100 mg PO BID [facility] Stop: 11/07/21 20:59 Last Admin: 10/15/21 20:39 Dose: Not Given Folic Acid (Folic Acid 1 Mg Tab) 1 mg PO DAILY [facility] Stop: 11/06/21 08:59 Last Admin: 10/15/21 08:18 Dose: 1 mg Gabapentin (Gabapentin 300 Mg Cap) 300 mg PO TID [facility] Stop: 11/06/21 08:59 Last Admin: 10/15/21 20:37 Dose: 300 mg Metronidazole (Flagyl) 500 mg in 100 mls @ 100 mls/hr IV Q8H [facility]; Protocol Stop: 10/19/21 10:59 Last Infusion: 10/16/21 05:03 Dose: Infused Morphine Sulfate (Morphine Sulfate 2 Mg/Ml Carp) 2 mg IV PRE-TREAT PRN PRN Reason: Pain Stop: 10/25/21 08:55 Last Admin: 10/13/21 09:15 Dose: 2 mg Naloxone HCl (Naloxone Hcl 0.4 Mg/1 Ml Vial/Carp) 0.1 mg IV Q5M PRN PRN Reason: Oversedation/Resp Depression Stop: 11/07/21 14:30 Ondansetron HCl (Ondansetron Inj 2 Mg/Ml 2 Ml Vial) 4 mg IV Q6H PRN PRN Reason: Nausea Stop: 11/06/21 01:20 Oxycodone HCl (Oxycodone Hcl Ir 5 Mg Tab (Immediate Release)) 5 - 10 mg PO Q4H PRN PRN Reason: Pain or Pre PT Stop: 10/22/21 14:30 Last Admin: 10/14/21 22:39 Dose: 10 mg Polyethylene Glycol (Polyethylene (Miralax) 17 Gm Pack) 17 gm PO DAILY PRN PRN Reason: Constipation Stop: 11/06/21 01:20 Risperidone (Risperidone 0.5 Mg Tablet) 0.5 mg PO HS [facility] Stop: 11/06/21 20:59 Last Admin: 10/15/21 20:37 Dose: 0.5 mg Sennosides (Senna 8.6 Mg Tab) 17.2 mg PO HS [facility] Stop: 11/07/21 20:59 Last Admin: 10/15/21 20:39 Dose: Not Given Tramadol HCl (Tramadol Hcl 50 Mg Tablet) 50 - 100 mg PO Q4H PRN PRN Reason: Pain & Pre PT Stop: 11/07/21 14:30 Trazodone HCl (Trazodone Hcl 50 Mg Tab) 150 mg PO HS [facility] Stop: 11/06/21 20:59 Last Admin: 10/15/21 20:37 Dose: 150 mg
[2021-10-16] MEDS: FOLIC ACID 1 MG TAB PO SCH (08:05)
[2021-10-16] MEDS: GABAPENTIN 300 MG CAP PO SCH ×3 (08:05→20:54)
[2021-10-16] MEDS: DOCUSATE SODIUM 100 MG CAP PO SCH ×3 (08:06→20:57)
[2021-10-16] MEDS: AMANTADINE HCL 100 MG CAPSULE PO SCH ×2 (08:06→20:53)
[2021-10-16] MEDS: BACLOFEN 20 MG TAB PO SCH ×3 (08:06→20:53)
[2021-10-16] MEDS: cefTRIAXone SODIUM 2,000 MG in DEXTROSE 5% 50 ML IV SCH (08:12)
[2021-10-16] MEDS: MoRPHine SULFATE 2 MG/ML CARP IV PRN (09:26)
[2021-10-16] MEDS: oxyCODONE HCL IR 5 MG TAB (IMMEDIATE RELEASE) PO PRN ×2 (10:54→17:39)
--- NOTE | 2021-10-16 11:41 | Progress Notes ---
DATE OF SERVICE: 10/16/2021 Resting comfortably in bed. I have encouraged her to get out of bed, sit in her chair with the leg e levated and to get up and move about with her walker and boot. She can bear weight on her heel. I w ill review wound care image from today. Her wound VAC has been changed. There is no significant swe lling. Erythema has dissipated. ID consult is noted. At this time, she will continue to get IV ant ibiotics and wound VAC. We will check her wound periodically. It is conceivable that she could go t o a [facility] facility and follow up with myself and wound care as an outpatient. Job ID: [id number]
[2021-10-16] MEDS: traZODone HCL 50 MG TAB PO SCH (20:52)
[2021-10-16] MEDS: SENNA 8.6 MG TAB PO SCH ×2 (20:53→20:57)
[2021-10-16] MEDS: metroNIDAZOLE 500 MG TAB PO SCH (20:54)
[2021-10-16] MEDS: risperiDONE 0.5 MG TABLET PO SCH (20:54)
[2021-10-17] MEDS: oxyCODONE HCL IR 5 MG TAB (IMMEDIATE RELEASE) PO PRN ×2 (00:41→08:18)
[2021-10-17] MEDS ORDERED: MICONAZOLE NITRATE POWDER 43 GM EXT PRN (05:05)
[2021-10-17] MEDS: metroNIDAZOLE 500 MG TAB PO SCH ×2 (05:27→12:24)
[2021-10-17] MEDS: FOLIC ACID 1 MG TAB PO SCH (07:48)
[2021-10-17] MEDS: AMANTADINE HCL 100 MG CAPSULE PO SCH (07:48)
[2021-10-17] MEDS: cefTRIAXone SODIUM 2,000 MG in DEXTROSE 5% 50 ML IV SCH (07:48)
[2021-10-17] MEDS: GABAPENTIN 300 MG CAP PO SCH ×2 (07:49→13:27)
[2021-10-17] MEDS: DOCUSATE SODIUM 100 MG CAP PO SCH (07:49)
[2021-10-17] MEDS: BACLOFEN 20 MG TAB PO SCH ×2 (07:53→13:27)
--- NOTE | 2021-10-17 10:58 | Hospitalist Progress Note ---
Date of Service October 17, 2021 Assessment & Plan (1) Status post amputation of left foot through metatarsal bone: Plan: Infected Left foot status post transmetatarsal amputation Foot xray showed postsurgical change from forefoot amputation. There is no def initive radiographic evidence of osteomyelitis.Soft tissue edema is present throughout the forefoot stump with tiny foci of soft tissue gas Orthopedics consulted s/p left foot I&D with debridement, irrigation and wound vac placement of the infected left foot transmetatarsal amputation performed by Dr. Bartholomew (10/08/21) Wound cx (10/06/21) positive for staph species (MSSA) and corynebacterium Wound cx from the procedure (10/08) grew staph species (MSSA) and Finegoldia magna IV vancomycin and Zosyn were discontinued Changed abx to Rocephin IV , per above cultx, added Flagyl (10/12) Continue wound vac as per ortho / wound care nurse Wound care on board - next wound vac change today (10/16) PT/OT eval ID consulted Impression: 1.Left foot osteomyelitis and surgical site infection after TMA 2. RA on methotrexate Recommendation: With MSSA in the OR cultures, would assume her infection also involved the residual metatarsal bone and should be treated accordingly. Treat with ceftriaxone 2 g IV daily along with metronidazole 500 mg p.o. 3 times daily. Would extend this for 4 weeks postop, target end date of November 07, 2021. At that point, if there is still concerned about infection or delayed healing, she could probably just be transition to oral therapy with Augmentin 875 mg p.o. twice daily for 1-2 more weeks. While on antibiotics, she should have weekly CBC and CMP. She is welcome to follow-up in the ID clinic in the next 4 to 6 weeks to evaluate the surgical site. History of rheumatoid arthritis. Continue to hold methotrexate for now. History of depression continue trazodone. DVT prophylaxis: SCD due to recent orthopedic procedure (discussed w/ ortho) Code status Full code Disposition PT/OT eval Follow up with Dr Bartholomew in 10-14 days at [facility]. Call [phone] with any questions or concerns. Admission and Anticipated Discharge Date Admission Date: October 06, 2021 Subjective Patient was seen and evaluated for post op follow-up of left foot s/p first metatarsal amputationd/t infection Lying in bed in no acute distress , watching TV Pt is quite comfortable, but does have significant pain with wound VAC changes Denies any fever, chills, chest pain, palpitation, dizziness, shortness of breath. currently on Rocephin IV, and Flagyl wound vac applied ID consult obtained US guided line ordered Review of Systems Review of Systems: All systems reviewed & are unremarkable except as noted in Subjective Physical Exam Physical Exam: General- No acute distress Head- at raumatic Eyes- PER RL, EOMI, ENT- kendal pharynx clear Neck - supple, no JVD L ungs- clear to aus cultation Heart- r egular rhythm; no murmur Abdomen- no rmal bowel sounds, soft, nontender E xtremities- no ca lf tenderness, +Le ft foot TMA site i s slightly erythem atous (improved), +wound vac in plac e Neuro- alert, or iented x 3; PERRL, EOMI; no facial p alsy; no dysarthri a Skin- warm & dry Results & Data Results & Data ([facility]) Vital Signs (Past 12 Hours) Vital Signs Temp Pulse Resp BP Pulse Ox O2 Del Method 10/17/21 07:18 36.7 C 58 L 16 129/79 94 Room Air Medications Administered Current Inpatient Medications Acetaminophen (Acetaminophen 325 Mg Tab) 650 mg PO Q4H PRN PRN Reason: pain/fever Stop: 11/06/21 01:20 Last Admin: 10/13/21 08:00 Dose: 650 mg Amantadine HCl (Amantadine Hcl 100 Mg Capsule) 100 mg PO BID SHANNON Stop: 11/06/21 08:59 Last Admin: 10/17/21 07:48 Dose: 100 mg Baclofen (Baclofen 20 Mg Tab) 20 mg PO TID SHANNON Stop: 11/06/21 08:59 Last Admin: 10/17/21 07:53 Dose: 20 mg Bisacodyl (Bisacodyl 10 Mg Supp) 10 mg IN DAILY PRN PRN Reason: Constipation Stop: 11/07/21 14:30 Docusate Sodium (Docusate Sodium 100 Mg Cap) 100 mg PO BID SHANNON Stop: 11/07/21 20:59 Last Admin: 10/17/21 07:49 Dose: 100 mg Folic Acid (Folic Acid 1 Mg Tab) 1 mg PO DAILY [facility] Stop: 11/06/21 08:59 Last Admin: 10/17/21 07:48 Dose: 1 mg Gabapentin (Gabapentin 300 Mg Cap) 300 mg PO TID SHANNON Stop: 11/06/21 08:59 Last Admin: 10/17/21 07:49 Dose: 300 mg Ceftriaxone Sodium 2,000 mg/ (Dextrose) 70 mls @ 140 mls/hr IV DAILY [facility]; Protocol Stop: 11/27/21 08:59 Last Infusion: 10/17/21 08:34 Dose: Infused Metronidazole (Metronidazole 500 Mg Tab) 500 mg PO Q8H [facility]; Protocol Stop: 11/23/21 10:59 Last Admin: 10/17/21 05:27 Dose: 500 mg Miconazole Nitrate (Miconazole Nitrate Powder 43 Gm) 1 appln EXT PRN PRN PRN Reason: Affected Skin Folds Stop: 11/16/21 05:04 Morphine Sulfate (Morphine Sulfate 2 Mg/Ml Carp) 2 mg IV PRE-TREAT PRN PRN Reason: Pain Stop: 10/25/21 08:55 Last Admin: 10/16/21 09:26 Dose: 2 mg Naloxone HCl (Naloxone Hcl 0.4 Mg/1 Ml Vial/Carp) 0.1 mg IV Q5M PRN PRN Reason: Oversedation/Resp Depression Stop: 11/07/21 14:30 Ondansetron HCl (Ondansetron Inj 2 Mg/Ml 2 Ml Vial) 4 mg IV Q6H PRN PRN Reason: Nausea Stop: 11/06/21 01:20 Last Admin: 10/17/21 08:18 Dose: 4 mg Oxycodone HCl (Oxycodone Hcl Ir 5 Mg Tab (Immediate Release)) 5 - 10 mg PO Q4H PRN PRN Reason: Pain or Pre PT Stop: 10/22/21 14:30 Last Admin: 10/17/21 08:18 Dose: 10 mg Polyethylene Glycol (Polyethylene (Miralax) 17 Gm Pack) 17 gm PO DAILY PRN PRN Reason: Constipation Stop: 11/06/21 01:20 Risperidone (Risperidone 0.5 Mg Tablet) 0.5 mg PO HS [facility] Stop: 11/06/21 20:59 Last Admin: 10/16/21 20:54 Dose: 0.5 mg Sennosides (Senna 8.6 Mg Tab) 17.2 mg PO HS [facility]ON Stop: 11/07/21 20:59 Last Admin: 10/16/21 20:57 Dose: Not Given Tramadol HCl (Tramadol Hcl 50 Mg Tablet) 50 - 100 mg PO Q4H PRN PRN Reason: Pain & Pre PT Stop: 11/07/21 14:30 Trazodone HCl (Trazodone Hcl 50 Mg Tab) 150 mg PO HS [facility]ANNON Stop: 11/06/21 20:59 Last Admin: 10/16/21 20:52 Dose: 150 mg
--- NOTE | 2021-10-17 11:28 | Discharge Summary ---
Date of Service October 17, 2021 Admission HPI Per Admitting Provider This is a 56-year-old female with past medical history significant for osteoarthritis, history of chronic elbow pain, history of abnormal involuntary movement, history of rheumatoid arthritis involving multiple sites with positive rheumatoid factor, history of depression, posttraumatic stress disorder, the patient recently had left foot TMA presents with infection of the surgical site. The patient says it is draining last few days.. States few days ago she had fever. Denies any other complaints. Hemodynamically stable. Denies any headache, no dizziness, no blurred visions, no earache, no runny nose, no sore throat, no cough, no chest pain, no shortness of breath, no nausea, once in a while she gets abdominal pain. Normal bowel and bladder movements. Admission Exam Per Admitting Provider GENERAL: The patient is of moderate build, not in acute distress. VITAL SIGNS: Temperature 36.5, pulse 65, respiratory rate 18, blood pressure 154/95, oxygen 94% on room air. HEENT: Pupils equal, round and reactive to light. Oral mucosa moist. NECK: No JVD or neck masses. CARDIOVASCULAR: S1 and S2 heard. Regular rate and rhythm. No murmur, no gallop. RESPIRATORY SYSTEM: Normal AP diameter. No accessory muscle use. No wheezing, no crackles. ABDOMEN: Soft, bowel sounds present, nontender, no distention. CENTRAL NERVOUS SYSTEM: Cranial nerves II through XII grossly intact, nonfocal. EXTREMITIES: Left foot TMA site is erythematous, wet and black eschar seen. Principal Diagnosis 1.Left foot osteomyelitis and surgical site infection after TMA 2. RA on methotrexate Discharge Exam General- No acute distress Head- atraumatic Eyes- PERRL, EOMI, ENT- oropharynx clear Neck- supple, no JVD Lungs- clear to auscultation Heart- regular rhythm; no murmur Abdomen- normal bowel sounds, soft, nontender Extremities- no calf tenderness, +Left foot TMA site is slightly erythematous (improved), +wound vac in place Neuro- alert, oriented x 3; PERRL, EOMI; no facial palsy; no dysarthria Skin- warm & dry Discharge Data Allergies Allergy/AdvReac Type Severity Reaction Status Date / Time cephalexin Allergy Intermediate MOUTH AND Verified 10/11/21 08:21 THROAT BLISTERED codeine Allergy Intermediate Hives Verified 10/06/21 22:13 sulfamethoxazole Allergy Intermediate Hives Verified 10/06/21 22:13 trimethoprim Allergy Intermediate Hives Verified 10/06/21 22:13 Consultations 10/06/21 22:48 ED Decision to Admit Stat 10/07/21 12:44 Consult Orthopedic Surgery Routine 10/09/21 16:41 Consult Infectious Diseases Routine Procedures Performed Operation Date: 10/08/21 09:00 Actual Procedures p Incision and drainage to transmetatarsal amputation on left foot. Wound measures [id number] per surgeon.(Left) - Danilo Bartholomew MD Hospital Course (1) Status post amputation of left foot through metatarsal bone: Infected Left foot status post transmetatarsal amputation Foot xray showed postsurgical change from forefoot amputation. There is no definitive radiographic evidence of osteomyelitis.Soft tissue edema is present throughout the forefoot stump with tiny foci of soft tissue gas Orthopedics consulted s/p left foot I&D with debridement, irrigation and wound vac placement of the infected left foot transmetatarsal amputation performed by Dr. Bartholomew (10/08/21) Wound cx (10/06/21) positive for staph species (MSSA) and corynebacterium Wound cx from the procedure (10/08) grew staph species (MSSA) and Finegoldia magna IV vancomycin and Zosyn were discontinued Changed abx to Rocephin IV , per above cultx, added Flagyl (10/12) Continue wound vac as per ortho / wound care nurse Wound care on board - last wound vac change yesterday (10/16) PT/OT eval ID consulted Impression: 1.Left foot osteomyelitis and surgical site infection after TMA 2. RA on methotrexate Recommendation: With MSSA in the OR cultures, would assume her infection also involved the residual metatarsal bone and should be treated accordingly. Treat with ceftriaxone 2 g IV daily along with metronidazole 500 mg p.o. 3 times daily. Would extend this for 4 weeks postop, target end date of November 07, 2021. At that point, if there is still concerned about infection or delayed healing, she could probably just be transition to oral therapy with Augmentin 875 mg p.o. twice daily for 1-2 more weeks. While on antibiotics, she should have weekly CBC and CMP. She is welcome to follow-up in the ID clinic in the next 4 to 6 weeks to evaluate the surgical site. History of rheumatoid arthritis. Continue to hold methotrexate for now. History of depression continue trazodone. DVT prophylaxis: SCD due to recent orthopedic procedure (discussed w/ ortho) Code status Full code Disposition - DC to [facility] Follow up with Dr Bartholomew in 10-14 days at [facility]. Call [phone] with any questions or concerns. Total Time Total Time Spent Total Time Spent (In Minutes): 40 Discharge Plan Discharge Items Patient Disposition: Transfer Inpatient Rehab Fac Reason For Visit: LEFT FOOT INFECTION Discharge Diagnosis: 1.Left foot osteomyelitis and surgical site infection after TMA 2. RA on methotrexate Activity: Per Instructions section Non-emergency contact: Primary Care Provider, Surgeon and Specialist Call non-emergency contact if: you have any medication questions and your symptoms worsen Follow-up/Referrals: Srinath Carvajal, [Primary Care Provider] - Diet: Regular Addtl Attending Provider Instructions: You will need to follow-up with your orthopedic surgeon, primary care physician, and possibly also with infectious disease doctor. Continue antibiotics, IV ceftriaxone, and p.o. Flagyl, as prescribed at least through November 07. You will need to obtain weekly blood work. Recommend taking probiotics, while you are on antibiotics to prevent any stomach upset or diarrhea. Pending Studies at Discharge: No Stand-Alone Forms: [facility] Skilled Items Patient informed of condition?: Yes DNR: No Discharge Level of Care: Acute rehab Communicable Disease: No Discharge Prognosis: Stable Lines: US Guided Peripheral IV Urinary Catheter: No Medications and DC Order Prescriptions: New metronidazole 500 mg Tablet 500 mg PO Q8H 21 Days Qty: 63 0RF oxycodone 5 mg Tablet 10 mg PO Q4H PRN (Reason: pain) Qty: 14 0RF tramadol 50 mg Tablet 50 mg PO Q4H PRN (Reason: pain) Qty: 10 0RF polyethylene glycol 3350 [Miralax] 17 gram Powder In Packet 17 g PO DAILY PRN (Reason: constipation) Qty: 14 0RF docusate sodium 100 mg Capsule 100 mg PO BID Qty: 10 0RF Advanced Probiotic 625 mg (10 billion cell) Capsule 2 cap PO DAILY 21 Days Qty: 42 0RF Continued baclofen 10 mg tablet 20 mg PO TID gabapentin 300 mg capsule 300 mg PO TID trazodone 150 mg tablet 150 mg PO HS methotrexate sodium 2.5 mg tablet 15 mg PO WK Rx Instructions: TAKES ON THURSDAYS folic acid 1 mg tablet 1 mg PO DAILY risperidone 0.5 mg Tablet 0.5 mg PO HS Qty: 30 0RF amantadine HCl 100 mg capsule 100 mg PO BID Discharge Orders: Discharge Order (Routine); Ordered 10/17/21 Ordered By: Antonio Sheehan Admission Data Admit Date/Time: 10/06/21 23:43 Attending Provider: Antonio Sheehan Admit Provider: Gab Rodriguez Primary Care Provider: Srinath Carvajal Other Providers: Gab Rodriguez ; Danilo Bartholomew ; Jose Meraz ; Asha Rebolledo ; Tray Mckeon I. ; Francois Romero II ; Gabriela Alegria ; Parish Rapp ; Olivier Barton ; Nestor Sierra ; [facility] ; [facility], ; [facility] Other Interventions: Discharge Summary Assessment (RN) Last Done: 10/17/21 11:11
[2021-10-17] MEDS ORDERED: ADVANCED PROBIOTIC 1250 MG CAPSULE PO SCH (12:00)
--- NOTE | 2021-10-17 14:26 | Orthopedic Progress Note ---
Date of Service October 17, 2021 Assessment & Plan (1) Status post incision and drainage: Plan: POD 9 s/p left foot I&D with debridement, irrigation and wound vac placement Patient is doing well this morning. No issues with wound vac WBAT with walker and cam boot on left heel. PT/OT Diet - regular Elevate left foot DVT prophylaxis: per primary Pain control: per primary Continue Abx: recommendations as per ID consult, switched to ceftriaxone and metronidazole as recommended. Follow up with Dr. Bartholomew as scheduled on 10/24/21 at 9:30 a.m. [place] from ortho standpoint for discharge to [facility]. Admission and Anticipated Discharge Date Admission Date: October 06, 2021 Subjective Patient resting in bed, sleeping, states she was up late last night and just recently had pain medication. Denies pain in left foot right now. Is being discharge to [facility] today. Physical Exam Musculoskeletal: Left foot without edema, she actively moves ankle without pain. Wound vac in place, functioning, sealed. No visible erythema. Results & Data ([facility]) Vital Signs (Past 12 Hours) Vital Signs Temp Pulse Pulse Pulse Pulse Resp BP 10/17/21 11:11 36.7 C 56 L 50 L 58 L 51 L 16 146/82 H 10/17/21 07:18 36.7 C 58 L 16 BP Pulse Ox O2 Del Method 10/17/21 11:11 129/79 94 10/17/21 07:18 129/79 94 Room Air
== END 2021-10-17 17:16 | DRG 464 ==
LOC: ED 20:13 → 3E 23:43 → SUATTDRO 23:43 → 3E 10-07 00:44